=== PATIENT | male | born 1940 | race Caucasian/White ===

== ENCOUNTER 2022-08-04 10:53 | Outpatient (CLI) | payer MEDICARE, BC, SELFPAY ==
[2022-08-04 11:01] VITALS: BP 186/91; PULSE 62; RESP 18; O2SAT 97
--- OUTSIDE RECORDS SUMMARY | 2022-08-04 11:04 | XMS_ITS | Encounter Summary ---
:1940 Author Organization [facility] Address [address] [place] [address] Care Team Providers Name Role Phone Unavailable Primary Care Provider Unavailable Encounter Details Date Type Department Care Team Description 08/05/2021 Hospital Encounter Department of Arturo Munoz [facility] Laboratory Medicine Lv Travis Glucose in [place] [phone] [facility] [phone] [place], [place] (Work) [phone] Social History Tobacco Use Types Packs/Day Years Used Date Smoking Tobacco: Former Pipe Quit : 1989 Smokeless Tobacco: Never Alcohol Use Standard Drinks/Week Comments Yes 0 (1 standard drink = 0.6 oz pure scotch / whiskey once 1-2 times/week alcohol) Alcohol Habits Answer Date Recorded How often do you have a drink containing 4 or more times a w [place] 06/24/2022 alcohol? How many drinks containing alcohol do you have 1 or 2 06/24/2022 on a typical day when you are drinking? How often do you have six or more drinks on one Never 06/24/2022 occasion? Social Isolation Answer Date Recorded In a typical week, how many times do you Twice a week 06/24/2022 talk on the phone with family, friends, or neighbors? How often do you get together with friends Once a week 06/24/2022 or relatives? How often do you attend worship or episcopal More than 4 time s per year 06/24/2022 services? Do you belong to any clubs or organizations Yes 06/24/2022 such as worship groups, unions, fraternal or athletic groups, or school groups? How often do you attend meetings of the Patient refused 06/24/2022 clubs or organizations you belong to? Are you now , , , 06/24/2022 , never or living with a partner? Physical Activity Answer Date Recorded On average, how many days per week do you engage in moderate to 3 days 06/24/2022 strenuous exercise (like walking fast, running, jogging, dancing, swimming, biking, or other activities that cause a light or heavy sweat)? On average, how many minutes do you engage in exercise at th is 50 min 06/24/2022 level? Stress Answer Date Recorded Do you feel stress - tense, restless, nervous, or Only a lit tle 06/24/2022 anxious, or unable to sleep at night because your mind is troubled all the time - these days? Financial Resource Strain Answer Date Recorded How hard is it for you to pay for the very basics like Not h jacqueline at all 06/24/2022 food, housing, medical care, and heating? Intimate Partner Violence Answer Date Recorded Within the last year, have you been afraid of your partner o r No 06/24/2022 ex-partner? Within the last year, have you been humiliated or emotionall y No 06/24/2022 abused in other ways by your partner or ex-partner? Within the last year, have you been kicked, hit, slapped, or No 06/24/2022 otherwise physically hurt by your partner or ex-partner? Within the last year, have you been raped or forced to have any No 06/24/2022 kind of sexual activity by your partner or ex-partner? Food Insecurity Answer Date Recorded Within the past 12 months, you worried that your food would Never true 06/24/2022 run out before you got money to buy more. Within the past 12 months, the food you bought just didn't N ever true 06/24/2022 last and you didn't have money to get more. Transportation Needs Answer Date Recorded In the past 12 months, has lack of transportation kept you f rom No 06/24/2022 medical appointments or from getting medications? In the past 12 months, has lack of transportation kept you f rom No 06/24/2022 meetings, work, or getting things needed for daily living? Housing Stability Answer Date Recorded In the last 12 months, was there a time when you were not ab le No 06/24/2022 to pay the mortgage or rent on time? In the last 12 months, how many places have you lived? 1 06/24/2022 In the last 12 months, was there a time when you did not hav e a No 06/24/[address] to [address] or slept in a prison (including now)? Education Answer Date Recorded What is the highest level of school you have completed or th e Doctorate 07/31/2021 highest degree you have received? 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 atorvastatin (LIPITOR) 20 Take 1 tablet by 0 01/03 mg tablet mouth daily. carvedilol (COREG) 6.25 mg Take 1 tablet by 0 tablet mouth 2 (two) times a day. cholecalciferol (VITAMIN Take 2,000 Units 0 05/15 D3) 2,000 Unit capsule by mouth daily. furosemide (LASIX) 20 mg Take 1 tablet (20 90 tablet 3 09/202008/05/2022 tablet mg total) by mouth daily. glucosamine-chondroitin Take 1 capsule by 0 06/05 (GLUCOSAMINE-CHONDROITIN) mouth 2 (two) 500-400 mg per capsule times a day. losartan (COZAAR) 100 mg Take 100 mg by 0 020 tablet mouth at bedtime. nitroglycerin (NITROSTAT) Place 1 tablet 0 2017 0.4 mg SL tablet under the tongue as needed. documented as of this encounter Plan of Treatment Upcoming Encounters Date Type Specialty Care Team Description 08/17/2022 Appointment Radiology Arturo Munoz M.D. 200 [place], [place] [phone] (Wo rk) 08/19/2022 Appointment Cardiovascular Disease Swathi Munoz M.D. [address] [place], [place] [phone] (Wo rk) 08/19/2022 Appointment Radiology Arturo Munoz M.D. [address] [place], [place] [phone] (Wo rk) 08/25/2022 Office Visit Cardiovascular Disease Swathi Munoz M.D. [address] [place], [place] [phone] (Wo rk) documented as of this encounter Procedures Procedure Name Priority Date/Time Associated Diagnosis Comme nts BASIC METABOLIC Routine 08/05/2021 11:53 AM Impaired Fasting R esults for this PANEL, S/P DIAMOND SANDER Glucose procedure are i n the results section. documented in this encounter Results (ABNORMAL) Basic Metabolic Panel (08/05/2021 11:53 AM DIAMOND SANDER) athologist Signature Potassium, P 5.0 3.6 - 5.2 08/05/2021 CN[facility] mmol/L 1:06 PM DIAMOND SANDER Sodium, P 140 135 - 145 08/05/2021 [facility] mmol/L 1:06 PM DIAMOND SANDER Chloride, P 106 98 - 107 08/05/2021 [facility] mmol/L 1:06 PM DIAMOND SANDER Bicarbonate, P 25 22 - 29 08/05/2021 [facility] mmol/L 1:06 PM DIAMOND SANDER Anion Gap, P 9 7 - 15 08/05/2021 CNFL 1:06 PM DIAMOND SANDER BUN (Blood Urea 25 (H) 8 - 24 08/05/2021 CNFL Nitrogen), P mg/dL 1:06 PM DIAMOND SANDER Creatinine 1.16 0.74 - 08/05/2021 CNFL 1.35 mg/dL 1:06 PM DIAMOND SANDER eGFR-Black/Afri 67 >=60 08/05/2021 CNFL can Norwegian mL/min/BSA 1:06 PM DIAMOND SANDER Comment: ----ADDITIONAL INFORMATION---- Estimated GFR calculated using the 2009 CKD_EPI creatinine equation. eGFR Non-Black/ 58 (L) >=60 mL/min/BSA 08/05/2021 1:06 PM DIAMOND SANDER CN[facility] Norwegian Comment: ----ADDITIONAL INFORMATION---- Estimated GFR calculated using the 2009 CKD_EPI creatinine equation. Calcium, Total, P 9.4 8.8 - 10.2 mg/dL 08/05/2021 1:06 PM DIAMOND SANDER CNFL Glucose, P 105 70 - 140 mg/dL 08/05/2021 1:06 PM DIAMOND SANDER C NFL Specimen Anatomical Collection Method Collection Time Receive d Time (Source) Location / / Volume Laterality Blood (Blood, 08/05/2021 11:53 08/05/2021 Venous) AM DIAMOND SANDER 11:57 AM DIAMOND SANDER Arturo Munoz M.D. LAB BLOOD ADD-ON Performing Organization Address City/State/ZIP Code Phon e Number [address] [address] [facility] [address] System in [address] documented in this encounter Visit Diagnoses Diagnosis Impaired Fasting Glucose documented in this encounter
--- OUTSIDE RECORDS SUMMARY | 2022-08-04 11:04 | XMS_ITS | Encounter Summary ---
:1940 Author Organization [facility] Address [address] [place] [address] Care Team Providers Name Role Phone Unavailable Primary Care Provider Unavailable Reason for Visit Reason Comments Skin Problem Outpatient (Routine) - Closed Specialty Diagnoses / Procedures Referred By Contact Refer red To Contact Dermatology Diagnoses Keratosis Actinic Emelina Medina M.D. [facility] [address] [place], [place] [phone] Referral ID Status Reason Start Date Expiration Date Visits Requ ested Visits Authorized [id number] Closed 04/14/2020 04/14/2021 1 1 Encounter Details Date Type Department Care Team Description 06/24/2020 Office Visit Department of Emelina Medina, Tumor Skin Uncertain Behavior (Primary Dx); Dermatology in [place] Keratosis Actinic [place], [place] [address] [phone] Social History Tobacco Use Types Packs/Day Years Used Date Smoking Tobacco: Former Pipe Quit : 1989 Smokeless Tobacco: Never Alcohol Use Standard Drinks/Week Comments Yes 0 (1 standard drink = 0.6 oz pure scotch / whiskey once 1-2 times/week alcohol) Alcohol Habits Answer Date Recorded How often do you have a drink containing 4 or more times a w mary[place] ig[place] 06/24/2022 alcohol? How many drinks containing alcohol [...] or relatives? How often do you attend adventism or mormon More than 4 time s per year 06/24/2022 services? Do you belong to any clubs or organizations Yes 06/24/2022 such as adventism groups, unions, fraternal or athletic groups, or [...] place to sleep or slept in a [facility]cc (including now)? 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 The patient was last seen by me in Dermatology clinic on 04/07/2020 and a shave biopsy of lesion involving the right upper paraspinal back was done, rule out scc. Pathology report showed hypertrophic ak with follicular extension and positive margins. He returns today with subsequent treatment with C&C. MEDICAL HISTORY No history of skin cancer ?? FAMILY HISTORY No family history for melanoma ?? OBJECTIVE PHYSICAL EXAMINATION General: Awake, alert, in no acute distress, and with appropriate affect. Skin: Limited skin exam done today. Examination of the right upper paraspinal back reveals a shave biopsy site that is well healed with no infection, but there still persists a 8 x 5 mm scaly macule. 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 After explaining the procedure, discussing the associated risks, benefits, and alternatives, and obtaining verbal informed consent, the lesion(s) underwent treatment with curettage and cryotherapy in the standard fashion. Defect size: 9 x 9 mm. Wound care was discussed. Patient offered educational materials. Follow-up immediately if changes occur during monthly self-skin exam. Otherwise follow up in 6-12 months. PATIENT EDUCATION: Ready to learn. No apparent learning barriers were identified. Learning preferences include listening. Explained diagnosis and treatment plan; patient/guardian of patient expressed understanding of thecontent. By signing my name below, I, Jenae Marino, attest that this documentation has been prepared underthe direction and in the presence of Emelina Medina M.D. Electronically Signed: scribe. Davion 06/24/2020. IEmelina M.D., personally performed the services described in this documentation. All medical record entries made by the scribe were at my direction and in my presence. I have reviewed the chart and discharge instructions (if applicable) and agree that the record reflects my personal performance and is accurate and complete. Emelina Medina M.D. 06/24/2020. documented in this encounter Plan of Treatment Upcoming Encounters Date Type Specialty Care Team Description 08/17/2022 Appointment Radiology Arturo Munoz M.D. [address] [place], [place] [phone] (Wo chicho) 08/19/2022 Appointment Cardiovascular Disease Swathi Munoz M.D. [address] [place], [place] [phone] (Wo chicho) 08/19/2022 Appointment Radiology Arturo Munoz M.D. [address] [place], [place] [phone] (Wo rk) 08/25/2022 Office Visit Cardiovascular Disease Swathi Munoz M.D. [address] [place], [place] [phone] (Wo rk) documented as of this encounter Visit Diagnoses Diagnosis Tumor Skin Uncertain Behavior - Primary Keratosis Actinic documented in this encounter Administered Medications Inactive Administered Medications - up to 3 most recent administrations Medication Order MAR Action Action Date Dose Rate Site lidocaine-EPINEPHrine 1 %-1:100,000 Given 06/24/2020 1:45 PM CDT 5 mL Other injection 5 mL (XYLOCAINE W/EPI) 5 mL, infiltration, Once, On Tue06/24/20 at 1345, For 1 dose documented in this encounter
--- OUTSIDE RECORDS SUMMARY | 2022-08-04 11:04 | XMS_ITS | Encounter Summary ---
:1940 Author Organization [facility] Address [address] [place] [address] Care Team Providers Name Role Phone Unavailable Primary Care Provider Unavailable Reason for Referral Outpatient (Routine) - Closed Specialty Diagnoses / Procedures Referred By Contact Refer red To Contact Cardiovascular Disease Arturo Munoz [facility] [place] [facility] M.D. [address] [place] [phone] Referral ID Status Reason Start Date Expiration Date Visits Requ ested Visits Authorized [id number] Closed 07/23/2020 07/23/2021 1 1 EUR/MASSEUSE Reason for Visit Reason Comments Follow-up Outpatient (Routine) - Closed Specialty Diagnoses / Procedures Referred By Contact Refer red To Contact Cardiovascular Disease Arturo Munoz [facility] [place] [facility] M.D. [address] [place] [phone] Referral ID Status Reason Start Date Expiration Date Visits Requ ested Visits Authorized [id number] Closed 05/01/2020 05/01/2021 1 1 Encounter Details Date Type Department Care Team Description 07/23/2020 Office Visit Department of Arturo Munoz Cardiovascular Diseases Lv Travis Glucose (Primary Dx) in [place] [address] [phone] [place], [place] [phone] (Work) [phone] Social History Tobacco Use Types Packs/Day Years Used Date Smoking Tobacco: Former Pipe Quit : 1989 Smokeless Tobacco: Never Alcohol Use Standard Drinks/Week Comments Yes 0 (1 standard drink = 0.6 oz pure scotch / whiskey once 1-2 times/week alcohol) Alcohol Habits Answer Date Recorded How often do you have a drink containing 4 or more times a w [place] 06/24/2022 alcohol? How many drinks containing alcohol [...] or relatives? How often do you attend synagogue or jehovah's witness More than 4 time s per year 06/24/2022 services? Do you belong to any clubs or organizations Yes 06/24/2022 such as synagogue groups, unions, fraternal or athletic groups, or [...] place to sleep or slept in a snf (including now)? 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 - 07/23/2020 9:44 AM CST SUBJECTIVE HISTORY OF PRESENT ILLNESS Evelinetunde is a pleasant 80-year-old gentleman known to me from prior consultation. The reader is referred to my progress note dated May 01, 2020 for details. At that time, he had evidence of mildlyimpaired fasting glucose. I counseled him then on carbohydrate reduction. The plan was to update testing with a hemoglobin A1c today. 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 He was congratulated on this. His hemoglobin A1c shows 6% which is consistent with a diagnosis of prediabetes. OBJECTIVE PHYSICAL EXAMINATION Vital Signs: Blood pressure 136/80, heart rate 60, weight 101 kg. General: This is a healthy-appearing elderly gentleman sitting comfortably in no acute distress. Eyes: Anicteric. Ears, Nose And Throat: Mucous membranes are covered by a cloth mask. Lungs: Symmetric chest expansion. Breathing nonlabored. Extremities: Warm with very mild edema just above the sock line bilateral. I would grade this 1+/4. Skin: No visible ecchymosis, bruising, or breakdown. Psych: Alert, oriented, and responding appropriately. Neuro: Afocal diagnoses. ASSESSMENT / PLAN #1 He had an anterior myocardial infarction (2012), status post stent to mid LAD #2 Impaired fasting glucose #3 Hyperlipidemia with optimal lipid control #4 Obesity It was a pleasure to visit with Dr. 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 Hemoglobin A1c returned at 6%. This is consistent with prediabetes. I have discussed the potential role of metformin. Dr. Lopes would prefer to continue with his diet. I think this is reasonable. His blood pressure appears well controlled. I will make arrangements to see him back in 1 year. We will get a basic metabolic panel at that time. I have asked Dr. Lopes to fast so that this would incorporate a fasting glucose. Twenty-five minutes in consultation. Arturo Munoz M.D. CT CT Job ID: [id number] EUR/MASSEUSE documented in this encounter Plan of Treatment Upcoming Encounters Date Type Specialty Care Team Description 08/17/2022 Appointment Radiology Arturo Munoz M.D. [address] [place], [place] [phone] (Wo rk) 08/19/2022 Appointment Cardiovascular Disease Swathi Munoz M.D. [address] [place] [phone] (Wo rk) 08/19/2022 Appointment Radiology Arturo Munoz M.D. [address] [place] [phone] (Wo rk) 08/25/2022 Office Visit Cardiovascular Disease Swathi Munoz M.D. [address] [place] [phone] (Wo rk) Scheduled Referrals Name Type Priority Associated Order Schedule Diagnoses Cardiovascular Disease Outpatient Referral Routine Expected: office visit (clinic) 2020 (Approximate), Expires: 07/23/2023 documented as of this encounter Procedures Procedure Name Priority Date/Time Associated Diagnosis Comme nts LIPID PANEL, S Routine 07/23/2020 11:01 AM Impaired Fasting Re sults for this MASSEUR/MASSEUSE Glucose procedure are i n the results section . documented in this encounter Results (ABNORMAL) Basic Metabolic Panel (08/05/2021 11:53 AM MASSEUR/MASSEUSE) P athologist Signature Potassium, P 5.0 3.6 - 5.2 08/05/2021 CNFL mmol/L 1:06 PM MASSEUR/MASSEUSE Sodium, P 140 135 - 145 08/05/2021 [facility] mmol/L 1:06 PM MASSEUR/MASSEUSE Chloride, P 106 98 - 107 08/05/2021 CNFL mmol/L 1:06 PM MASSEUR/MASSEUSE Bicarbonate, P 25 22 - 29 08/05/2021 CNFL mmol/L 1:06 PM MASSEUR/MASSEUSE Anion Gap, P 9 7 - 15 08/05/2021 CNFL 1:06 PM MASSEUR/MASSEUSE BUN (Blood Urea 25 (H) 8 - 24 08/05/2021 CNFL Nitrogen), P mg/dL 1:06 PM MASSEUR/MASSEUSE Creatinine 1.16 0.74 - 08/05/2021 CNFL 1.35 mg/dL 1:06 PM MASSEUR/MASSEUSE eGFR-Black/Afri 67 >=60 08/05/2021 CNFL can Sudanese mL/min/BSA 1:06 PM MASSEUR/MASSEUSE Comment: ----ADDITIONAL INFORMATION---- Estimated GFR calculated using the 2009 CKD_EPI creatinine equation. eGFR Non-Black/ 58 (L) >=60 mL/min/BSA 08/05/2021 1:06 PM MASSEUR/MASSEUSE CNFL Sudanese Comment: ----ADDITIONAL INFORMATION---- Estimated GFR calculated using the 2009 CKD_EPI creatinine equation. Calcium, Total, P 9.4 8.8 - 10.2 mg/dL 08/05/2021 1:06 PM MASSEUR/MASSEUSE CNFL Glucose, P 105 70 - 140 mg/dL 08/05/2021 1:06 PM MASSEUR/MASSEUSE C NFL Specimen Anatomical Collection Method Collection Time Receive d Time (Source) Location / / Volume Laterality Blood (Blood, 08/05/2021 11:53 08/05/2021 Venous) AM MASSEUR/MASSEUSE 11:57 AM MASSEUR/MASSEUSE Arturo Munoz M.D. LAB BLOOD ADD-ON Performing Organization Address City/State/[facility] Code Phon e Number [address] LAB CN[facility] [place] [id number] System in [address] Lipid Panel (07/23/2020 11:01 AM MASSEUR/MASSEUSE) P athologist Signature Cholesterol, 129 mg/dL 07/23/2020 CNFL Total 11:42 AM MASSEUR/MASSEUSE Comment: ----REFERENCE VALUE---- Desirable: < 200 Borderline high: 200 - 239 High: > or = 240 Triglycerides 75 mg/dL 07/23/2020 11:42 AM MASSEUR/MASSEUSE CN [place] Comment: ----REFERENCE VALUE---- Normal: <150 Borderline high: 150-199 High: 200-499 Very high: > or =500 Cholesterol, HDL 68 >=40 mg/dL 07/23/2020 11:42 AM CS T CNFL Calculated LDL 46 mg/dL 07/23/2020 11:42 AM MASSEUR/MASSEUSE C NFL Comment: ----REFERENCE VALUE---- Desirable: <100 Above Desirable: 100-129 Borderline high: 130-159 High: 160-189 Very high: > or =190 Cholesterol, Non-HDL, Calculated 61 mg/dL 020 11:42 AM MASSEUR/MASSEUSE CNFL Comment: ----REFERENCE VALUE---- Desirable: <130 Above Desirable: 130-159 Borderline high: 160-189 High: 190-219 Very high: > or =220 Specimen Anatomical Collection Method Collection Time Receive d Time (Source) Location / / Volume Laterality Blood (Blood, 07/23/2020 11:01 07/23/2020 Venous) AM MASSEUR/MASSEUSE 11:07 AM MASSEUR/MASSEUSE Arturo Munoz M.D. LAB BLOOD ADD-ON Performing Organization Address City/State/ZIP Code Phon e Number [facility]- [address] [place] [address] [facility] [address] [address] documented in this encounter Visit Diagnoses Diagnosis Impaired Fasting Glucose - Primary documented in this encounter
--- OUTSIDE RECORDS SUMMARY | 2022-08-04 11:04 | XMS_ITS | Encounter Summary ---
:1940 Author Organization [facility] Address [address] [place] [address] Care Team Providers Name Role Phone Unavailable Primary Care Provider Unavailable Reason for Visit Reason Comments Skin Check Appointment Request (Routine) - Closed Specialty Diagnoses / Procedures Referred By Contact Refer red To Contact Dermatology Referral ID Status Reason Start Date Expiration Date Visits Requ ested Visits Authorized [id number] Closed 03/29/2022 03/29/2023 1 1 Encounter Details Date Type Department Care Team Description 06/28/2022 Office Visit Department of Emelina Medina, Keratosis Actinic (Primary Dx); Dermatology in [place], [place] [address] [facility] Keratosis Seborrheic [address] [place] [id number] Social History Tobacco Use Types Packs/Day Years Used Date Smoking Tobacco: Former Pipe Quit : 1989 Smokeless Tobacco: Never Alcohol Use Standard Drinks/Week Comments Yes 7 (1 standard drink = 0.6 oz pure scotch / whiskey once 1-2 times/week alcohol) Alcohol Habits Answer Date Recorded How often do you have a drink containing 4 or more times a w [place] 06/24/2022 alcohol? How many drinks containing alcohol [...] or relatives? How often do you attend spiritism or anglican More than 4 time s per year 06/24/2022 services? Do you belong to any clubs or organizations Yes 06/24/2022 such as spiritism groups, unions, fraternal or athletic groups, or [...] place to sleep or slept in a usp (including now)? Education Answer Date Recorded What is the highest level of school you have completed or th e Doctorate 07/31/2021 highest degree you have received? 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 - 06/28/2022 11:00 AM CDT SUBJECTIVE CHIEF COMPLAINT / REASON FOR VISIT Full skin cancer screening HISTORY OF PRESENT ILLNESS John Lopes is a pleasant 82 y.o. male who presents for a full skin cancer screening. The patient was last seen by me in Dermatology clinic on 06/22/21. He denies a personal history of skincancer or family history for melanoma. He has a history of an hypertrophic actinic keratosis with follicular extension involving the right upper paraspinal back, status post curettage and cryotherapy on 06/24/[address] Medina at [facility]. He uses sunscreen. He denies any new or changing lesions today. MEDICAL HISTORY 1. Negative for skin cancer 2. Right upper paraspinal back: History of hypertrophic actinic keratosis with follicular extension,status post curettage and cryotherapy on 06/24/[address] Medina at [facility] FAMILY HISTORY Negative for melanoma OBJECTIVE PHYSICAL EXAMINATION General: Awake, alert, in no acute distress, and with appropriate affect. Eyes: No scleral injection or icterus. No eyelid abnormalities. Lymph: No lower extremity edema. Skin: I have examined the scalp, face, neck, chest, abdomen, back, bilateral upper extremities, and bilateral lower extremities. Examination today reveals actinic keratoses, including 2 right ear helix, 2 right upper forehead, 2 left upper forehead, 1 left ear helix, 1 right dorsal hand, 3 right forearm, 1 left dorsal hand, 2 right cheek and 1 left cheek. Examination of the face, trunk and extremities reveals multiple benign-appearing nevi, lentigines and seborrheic keratoses. Examination today reveals no suspicious lesions for skin cancer. ASSESSMENT / PLAN #1 Face, right dorsal hand, right forearm and left dorsal hand: Actinic keratosis x 15 Given the precancerous nature of this lesion(s), treatment is medically indicated. After discussion of the risks, benefits and alternatives to treatment with cryotherapy, informed consent was obtained.We treated a total of 15 lesion(s) with two 10-second freeze-thaw cycles of liquid nitrogen cryotherapy. The patient tolerated the procedure well. Aftercare instructions were provided in written and verbal form to the patient. Should any of these lesions recur, the patient should return for biopsy or further evaluation. Follow up in 1-2 months for recheck if these areas do not complete resolve. #2 Face, trunk and extremities: Multiple nevi and lentigines The ABCDE criteria for melanoma was reviewed with the patient. None of the patient's nevi reach the clinical threshold for biopsy. I recommend continued sun protection, self-skin examinations, and observation. Should any of the patient's nevi change in size, color, texture, or shape or develop symptoms such as itching or bleeding, I recommend an immediate return visit for reassessment. #3 Face, trunk and extremities: Seborrheic keratosis The benign nature of the skin lesion(s) was discussed with the patient. No treatment is required. I recommend continued observation. Should this lesion change in size, color, texture, or shape or develop symptoms such as itching or bleeding, I recommend an immediate return visit for reassessment. #4 Right upper paraspinal back: History of hypertrophic actinic keratosis with follicular extension,status post curettage and cryotherapy on 06/24/[address] Medina at [facility], no recurrence No clinical evidence of local recurrence today. Recommended monthly self-skin examinations to evaluate for new, changing, symptomatic, or otherwise worrisome lesions. Signs and symptoms of skin cancer discussed. Photoprotection was recommended. Return to Dermatology in 12 months for a full skin exam or immediately if any new or changing lesions are noted. PATIENT EDUCATION: Ready to learn. No apparent learning barriers were identified. Learning preferences include listening. Explained diagnosis and treatment plan; patient/guardian of patient expressed understanding of thecontent. By signing my name below, [email or web address], attest that this documentation has been prepared under the direction and in the presence of Emelina Medina M.D. Electronically Signed: mona Perez. 06/22/2022. 12:49 PM CDT. Emelina Brand M.D., personally performed the services described in this documentation. All medical record entries made by the scribe were at my direction and in my presence. I have reviewed the chart and discharge instructions (if applicable) and agree that the record reflects my personal performance and is accurate and complete. Emelina Medina M.D. documented in this encounter Plan of Treatment Upcoming Encounters Date Type Specialty Care Team Description 08/17/2022 Appointment Radiology Arturo Munoz M.D. [address] [place], [place] [phone] (Reggie valentino) 08/19/2022 Appointment Cardiovascular Disease Swathi Munoz M.D. [address] [place] [place] [phone] (Reggie valentino) 08/19/2022 Appointment Radiology Arturo Munoz M.D. [address] [place] [place] [phone] (Reggie valentino) 08/25/2022 Office Visit Cardiovascular Disease Swathi Munoz M.D. [address] [place] [place] [address] [phone] (Wo rk) documented as of this encounter Visit Diagnoses Diagnosis Keratosis Actinic - Primary Nevi Multiple Keratosis Seborrheic documented in this encounter
--- OUTSIDE RECORDS SUMMARY | 2022-08-04 11:04 | XMS_ITS | Encounter Summary ---
:1940 Author Organization [facility] Address [address] [place] [address] Care Team Providers Name Role Phone Unavailable Primary Care Provider Unavailable Reason for Visit Reason Comments Skin Check Appointment Request (Routine) - Closed Specialty Diagnoses / Procedures Referred By Contact Refer red To Contact Dermatology Referral ID Status Reason Start Date Expiration Date Visits Requ ested Visits Authorized [id number] Closed 12/29/2020 12/29/2021 1 1 Encounter Details Date Type Department Care Team Description 06/22/2021 Office Visit Department of Emelina Medina, Keratosis Actinic (Primary Dx); Dermatology in [place] Keratosis Seborrheic Inflamed; [place], [place] [address] [facility] Multiple; [address] [place] [address] [place] [phone] Social History Tobacco Use Types Packs/Day Years Used Date Smoking Tobacco: Former Pipe Quit : 1989 Smokeless Tobacco: Never Alcohol Use Standard Drinks/Week Comments Yes 0 (1 standard drink = 0.6 oz pure scotch / whiskey once 1-2 times/week alcohol) Alcohol Habits Answer Date Recorded How often do you have a drink containing 4 or more times a w [place] 06/24/2022 alcohol? How many drinks containing alcohol [...] or relatives? How often do you attend sabianism or alevism More than 4 time s per year 06/24/2022 services? Do you belong to any clubs or organizations Yes 06/24/2022 such as sabianism groups, unions, fraternal or athletic groups, or [...] place to sleep or slept in a longterm (including now)? 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 - 06/22/2021 10:15 AM CDT SUBJECTIVE CHIEF COMPLAINT / REASON FOR VISIT Full skin cancer screening HISTORY OF PRESENT ILLNESS John Lopes is a pleasant 81 y.o. male who follows up for a full skin cancer screening. The patient was last seen by me in Dermatology clinic on 06/24/20. He denies a personal history of skin cancer or family history for melanoma. He has a history of an hypertrophic actinic keratosis with follicular extension involving the right upper paraspinal back, status post curettage and cryotherapyon 06/24/[address] Medina at [facility]. He uses sunscreen. He denies any new or changing lesions today. MEDICAL HISTORY 1. Negative for skin cancer 2. Right upper paraspinal back: History of hypertrophic actinic keratosis with follicular extension,status post curettage and cryotherapy on 06/24/[address] Medina at [facility] FAMILY HISTORY Negative for melanoma OBJECTIVE PHYSICAL EXAMINATION General: Awake, alert, in no acute distress, and with appropriate affect. Eyes: No scleral injection or icterus. No eyelid abnormalities. Lymph: No lower extremity edema. Skin: I have examined the scalp, face, neck, chest, abdomen, back, bilateral upper extremities, and bilateral lower extremities. Examination today reveals actinic keratoses, including 3 right ear helix, 1 right ear antihelix, 3 right arm, 2 left arm, 1 right hand and 1 mid-nasal bridge. Examination of the face, trunk and extremities reveals multiple benign-appearing nevi, lentigines and seborrheic keratoses. Examination of the left upper paraspinal back reveals a 1 x 0.9 cm red scaly plaque, compatible withan irritated seborrheic keratosis vs lichenoid keratosis. Examination today reveals no suspicious lesions for skin cancer. ASSESSMENT / PLAN #1 Face and arms: Actinic keratosis x 11 Given the precancerous nature of this lesion(s), treatment is medically indicated. After discussion of the risks, benefits and alternatives to treatment with cryotherapy, informed consent was obtained.We treated a total of 11 lesion(s) with two 10-second freeze-thaw cycles of liquid nitrogen cryotherapy. The patient tolerated the procedure well. Aftercare instructions were provided in written and verbal form to the patient. Should any of these lesions recur, the patient should return for biopsy or further evaluation. Follow up in 1-2 months for recheck if these areas do not complete resolve. #2 Left upper paraspinal back: Irritated seborrheic keratosis vs lichenoid keratosis x 1 CONSENT Discussed the risks, benefits, alternatives, and the necessity of other members of the healthcare team participating in the procedure. All questions answered and consent given. PROCEDURE INFORMATION After discussion of the risks, benefits and alternatives to treatment with cryotherapy, informed consent was obtained. We treated a total of 1 lesion(s) with two 42-31-teoume freeze-thaw cycles of liquid nitrogen cryotherapy. The patient tolerated the procedure well. Aftercare instructions were provided in written and verbal form to the patient. Should any of these lesions recur, the patient should return for biopsy or further evaluation. Follow up in 1-2 months for recheck if these areas do not complete resolve. #3 Face, trunk and extremities: Multiple nevi and [...] an immediate return visit for reassessment. #4 Face, trunk and extremities: Seborrheic keratosis The benign nature of the skin lesion(s) was discussed with the patient. No treatment is required. I recommend continued observation. Should this lesion change in size, color, texture, or shape or develop symptoms such as itching or bleeding, I recommend an immediate return visit for reassessment. PATIENT EDUCATION: Ready to learn. No apparent learning barriers were identified. Learning preferences include listening. Explained diagnosis and treatment plan; patient/guardian of patient expressed understanding of thecontent. By signing my name below, I, Andrés Montoya, attest that this documentation has been prepared under thedirection and in the presence of Emelina Medina M.D. Electronically Signed: mona Jack. 06/22/2021. 10:35 AM CDT. I, Emelina Medina M.D., personally performed the services described in [...] 08/17/2022 Appointment Radiology Arturo Munoz M.D. [address] [place], [place] [phone] (Reggie valentino) 08/19/2022 Appointment Cardiovascular Disease Swathi Munoz M.D. 200 [place], [place] [phone] (Reggie valentino) 08/19/2022 Appointment Radiology Arturo Munoz M.D. 200 [place], [place] [phone] (Reggie valentino) 08/25/2022 Office Visit Cardiovascular Disease Swathi Munoz M.D. [address] [place], [place] [phone] (Wo rk) documented as of this encounter Visit Diagnoses Diagnosis Keratosis Actinic - Primary Keratosis Seborrheic Inflamed Nevi Multiple Keratosis Seborrheic documented in this encounter
--- OUTSIDE RECORDS SUMMARY | 2022-08-04 11:04 | XMS_ITS | Encounter Summary ---
:1940 Author Organization [facility] Address [address] [place] [address] Care Team Providers Name Role Phone Unavailable Primary Care Provider Unavailable Encounter Details Date Type Department Care Team Description 04/07/2020 Ancillary Procedure Department of Dermatology Social History Tobacco Use Types Packs/Day Years Used Date Smoking Tobacco: Former Pipe Quit : 1989 Smokeless Tobacco: Never Alcohol Use Standard Drinks/Week Comments Yes 0 (1 standard drink = 0.6 oz pure scotch / whiskey once 1-2 times/week alcohol) Alcohol Habits Answer Date Recorded How often do you have a drink containing 4 or more times a w [place] 06/24/2022 alcohol? How many drinks containing alcohol [...] or relatives? How often do you attend bahai or jew More than 4 time s per year 06/24/2022 services? Do you belong to any clubs or organizations Yes 06/24/2022 such as bahai groups, unions, fraternal or athletic groups, or [...] place to sleep or slept in a half-way (including now)? 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 [address] [place] [phone] (Wo rk) 08/19/2022 Appointment Cardiovascular Disease Swathi Munoz M.D. [address] [place] [address] [phone] (Wo rk) 08/19/2022 Appointment Radiology Arturo Munoz M.D. [address] [place] [address] [phone] (Wo rk) 08/25/2022 Office Visit Cardiovascular Disease Swathi Munoz M.D. [address] [place] [address] [phone] (Wo rk) documented as of this encounter Procedures Procedure Name Priority Date/Time Associated Comments Diagnosis DERMATOLOGY IMAGE Routine 04/07/2020 10:25 Result s for this EXAM AM CDT procedure are i n the results section. documented in this encounter Results Back, right 50 [phone]-Dermatology Image Exam (04/07/2020 10:25 AM CDT) Specimen (Source) Anatomical Collection Method Collection Time Re ceived Time Location / / Volume Laterality 04/07/2020 10:25 AM CDT Narrative [facility] - 04/07/2020 10:28 AM CDT This order has been created and auto-finalized to support the import of images acquired without order. The clini jamie documentation to support these images can be found on the encounter cara t produced images. Provider Not In System IMG NON RAD IMAGING PROCEDUR ES Performing Organization Address City/State/ZIP Code Phon e Number [facility] NA documented in this encounter Visit Diagnoses Not on filedocumented in this encounter
--- OUTSIDE RECORDS SUMMARY | 2022-08-04 11:04 | XMS_ITS | Encounter Summary ---
:1940 Author Organization [facility] Address [address] [place] [address] Care Team Providers Name Role Phone Unavailable Primary Care Provider Unavailable Reason for Referral Outpatient (Routine) - Closed Specialty Diagnoses / Procedures Referred By Contact Refer red To Contact Cardiovascular Disease Arturo Munoz [facility] PATRICK Gatica M.D. [address] [place] [address] Referral ID Status Reason Start Date Expiration Date Visits Requ ested Visits Authorized [id number] Closed 05/01/2020 05/01/2021 1 1 Reason for Visit Reason Comments Coronary Artery Disease Outpatient (Routine) - Closed Specialty Diagnoses / Procedures Referred By Contact Refer red To Contact Cardiovascular Disease TISHA Parrish [facility] En Aviles M.D. [address] [place] [address] Referral ID Status Reason Start Date Expiration Date Visits Requ ested Visits Authorized [id number] Closed 02/19/2019 02/19/2020 1 1 Encounter Details Date Type Department Care Team Description 05/01/2020 Office Visit Department of Arturo Munoz art Chronic Disease (Primary Dx); Cardiovascular Diseases Lv Travis Impaired Fasting Glucose in [place], [address] [place] [address] [address] [address] [place], [place] [phone] (Work) [phone] Social History Tobacco Use Types Packs/Day Years Used Date Smoking Tobacco: Former Pipe Quit : 1989 Smokeless Tobacco: Never Alcohol Use Standard Drinks/Week Comments Yes 0 (1 standard drink = 0.6 oz pure scotch / whiskey once 1-2 times/week alcohol) Alcohol Habits Answer Date Recorded How often do you have a drink containing 4 or more times a w [place] 06/24/2022 alcohol? How many drinks containing alcohol [...] or relatives? How often do you attend orthodox or jewish More than 4 time s per year 06/24/2022 services? Do you belong to any clubs or organizations Yes 06/24/2022 such as orthodox groups, unions, fraternal or athletic groups, or [...] place to sleep or slept in a group home (including now)? 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 - 05/01/2020 1:04 PM CDT SUBJECTIVE CHIEF COMPLAINT/REASON FOR VISIT Ischemic heart disease, prior myocardial infarction. HISTORY OF PRESENT ILLNESS Marianne is a pleasant 80-year-old gentleman from [place], [place]. 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 He experienced an anterior wall myocardial infarctionback in 2012. He received a stent to an occluded mid LAD. He was initially treated with thrombolytics, but required percutaneous coronary intervention. He was treated briefly with anticoagulation for 3months to the anterior wall infarct and akinetic apex. Echocardiograms have shown left ventricular ejection fraction ranging 40-50% over the years. Most recent echocardiogram showed a calculated ejection fraction of 51%. 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 He had no heart failure symptoms. He is followed yearly in Cardiology Clinic without elicitation of angina or heart failure. Dr. Lopes maintains his activities with cycling and some resistance weight training. This has been increasingly difficult given the coronavirus quarantine. He continues to walk the 9 [address] golf course approximately 2 times a week. Lipid profiles have shown excellent lipid control over the years. His last 2 lipid panels show an LDL cholesterol of less than 40 with an HDL cholesterol right at 50. Triglycerides have been 100 or less. Interestingly, fasting glucose has been 108 mg/dL on the past 2 metabolic panels. He has not been formally diagnosed with diabetes. OBJECTIVE VITAL SIGNS Height 176 cm, weight 105 kg, heart rate 60 and regular, blood pressure 138/80. PHYSICAL EXAMINATION General: Healthy-appearing elderly gentleman sitting comfortably in no acute distress. Eyes: Anicteric. Ears, Nose and Throat: Mucous membranes are covered by a homemade mask. Lungs: Symmetric chest expansion, breathing nonlabored. Extremities: Warm with 1+ pitting edema at the lower shins, just above the sock line. Skin: Very mild scattered ecchymoses on the extensor surface of the upper extremities. Psych: Alert, oriented, responding appropriately. Neuro: Afocal. 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 He continues to do well from a symptomstandpoint. He has no signs or symptoms that would suggest angina or heart failure. We spent the overwhelming majority of clinic in counseling. We discussed his excellent lipid profiles. We also discussed prior laboratory testing showing mildly impaired fasting glucose of 108 mg/dL. I think Dr. Lopeswould benefit from carbohydrate reduction. He has abdominal obesity and suggestion of prediabetes. We will update his testing with a hemoglobin A1c today. I spent upwards of 25 minutes counseling diet. We discussed low glycemic food choices. I will make arrangements to see Dr. Lopes back in 3 months. We will review his response to carbohydrate reduction and consider repeating fasting glucose at that time. I will call him with the results of the hemoglobin A1c. BILLING: There were 25 minutes in consultation. Arturo Munoz M.D. CT CT Job ID: [id number] documented in this encounter Plan of Treatment Upcoming Encounters Date Type Specialty Care Team Description 08/17/2022 Appointment Radiology Arturo Munoz M.D. [address] [place], [place] [phone] (Reggie valentino) 08/19/2022 Appointment Cardiovascular Disease Swathi Munoz M.D. [address] [place] [phone] (Reggie valentino) 08/19/2022 Appointment Radiology Arturo Munoz M.D. [address] [place] [phone] (Reggie valentino) 08/25/2022 Office Visit Cardiovascular Disease Swathi Munoz M.D. [address] [place] [phone] (Reggie valentino) Scheduled Referrals Name Type Priority Associated Order Schedule Diagnoses Cardiovascular Disease Outpatient Referral Routine Expected: office visit (clinic) 2019 (Approximate), Expires: 05/01/2023 documented as of this encounter Procedures Procedure Name Priority Date/Time Associated Diagnosis Comme nts HEMOGLOBIN A1C, B Routine 05/01/2020 2:08 PM Ischemic Heart Re sults for this CDT Chronic Disease procedure ar e in the results section. documented in this encounter Results (ABNORMAL) Hemoglobin A1c (05/01/2020 2:08 PM CDT) P athologist Signature Hemoglobin A1c, 6.0 (H) 4.2 - 5.6 05/01/2020 CNFL B % 2:30 PM CDT Comment: Hemoglobin A1c values of 5.7-6.4 percent indicate an increased risk for developing diabetes lynne guan. In diabetic patients, HbA1c goals should be discussed with healthcare provider. Specimen Anatomical Collection Method Collection Time Receive d Time (Source) Location / / Volume Laterality Blood (Blood, 05/01/2020 2:08 PM 05/01/20 20 2:13 Venous) CDT PM CDT Arturo Munoz M.D. LAB BLOOD ADD-ON Performing Organization Address City/State/ZIP Code Phon e Number [facility]- [address] [place] [address] [place] [address] [place] [address] [address] documented in this encounter Visit Diagnoses Diagnosis Ischemic Heart Chronic Disease - Primary Impaired Fasting Glucose documented in this encounter
--- OUTSIDE RECORDS SUMMARY | 2022-08-04 11:04 | XMS_ITS | Encounter Summary ---
:1940 Author Organization [facility] Address [address] [place] [address] Care Team Providers Name Role Phone Unavailable Primary Care Provider Unavailable Reason for Referral Outpatient (Routine) - Authorized Specialty Diagnoses / Procedures Referred By Contact Refer red To Contact Diagnoses Edema Lower Extremity Arturo Munoz M.D. [facility] [place] [facility] Procedures US Lower Extremity Veins Right [address] [place] [address] Referral ID Status Reason Start Date Expiration Date Visits V isits Requested Authorized [id number] Authorized 08/05/2021 08/05/2022 1 1 ING AND REGULATING TECHNICIAN Outpatient (Routine) - Authorized Specialty Diagnoses / Procedures Referred By Contact Refer red To Contact Orthopedic Surgery Diagnoses Pain Knee Right Edema Lower Extremity Arturo Munoz [facility] [place] [facility] M.D. [address] [place] [address] Referral ID Status Reason Start Date Expiration Date Visits V isits Requested Authorized [id number] Authorized 08/05/2021 08/05/2022 1 1 Scheduling Instructions Ortho internal referral panel order, gt ging before Consult visit ING AND REGULATING TECHNICIAN Outpatient (Routine) - Authorized Specialty Diagnoses / Procedures Referred By Contact Refer red To Contact Cardiovascular Disease Arturo Munoz [facility] [place] [facility] M.D. [address] [place] [address] Referral ID Status Reason Start Date Expiration Date Visits V isits Requested Authorized [id number] Authorized 08/05/2021 08/05/2022 1 1 ING AND REGULATING TECHNICIAN Outpatient (Routine) - Authorized Specialty Diagnoses / Procedures Referred By Contact Refer red To Contact Diagnoses Cardiomyopathy Ischemic Arturo Munoz M.D. [facility] [place] [facility] Procedures Echo Transthoracic (TTE) [address] [place] [phone] Referral ID Status Reason Start Date Expiration Date Visits V isits Requested Authorized [id number] Authorized 08/05/2021 09/03/2022 1 1 ING AND REGULATING TECHNICIAN Reason for Visit Reason Comments Follow-up Outpatient (Routine) - Closed Specialty Diagnoses / Procedures Referred By Contact Refer red To Contact Cardiovascular Disease Arturo Munoz [facility] PATRICK Gatica M.D. [address] [place] [address] Referral ID Status Reason Start Date Expiration Date Visits Requ ested Visits Authorized [id number] Closed 07/23/2020 07/23/2021 1 1 Encounter Details Date Type Department Care Team Description 08/05/2021 Office Visit Department of Artuor Munoz Cardiomyopa thy Ischemic (Primary Dx); Cardiovascular Diseases Lv Travis Pain Knee Right; in [address] Edema Lower Extremity [place] [address] [address] [address] [place], [place] [phone] (Work) [phone] Social History Tobacco Use Types Packs/Day Years Used Date Smoking Tobacco: Former Pipe Quit : 1989 Smokeless Tobacco: Never Alcohol Use Standard Drinks/Week Comments Yes 0 (1 standard drink = 0.6 oz pure scotch / whiskey once 1-2 times/week alcohol) Alcohol Habits Answer Date Recorded How often do you have a drink containing 4 or more times a w [place] 06/24/2022 alcohol? How many drinks containing alcohol [...] or relatives? How often do you attend mu-ism or bahai More than 4 time s per year 06/24/2022 services? Do you belong to any clubs or organizations Yes 06/24/2022 such as mu-ism groups, unions, fraternal or athletic groups, or [...] place to sleep or slept in a custodial (including now)? Education Answer Date Recorded What is the highest level of school you have completed or th e Doctorate 07/31/2021 highest degree you have received? 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 encounter Last Filed Vital Signs Vital Sign Reading Time Taken Comments Blood Pressure 170/79 08/05/2021 1:09 PM TESTING AND REGULATING TECHNICIAN Pulse 55 08/05/2021 1:09 PM TESTING AND REGULATING TECHNICIAN Temperature 36.9 ??C (98.4 ??F) 08/05/2021 12:59 PM TESTING AND REGULATING TECHNICIAN Respiratory Rate 18 08/05/2021 12:59 PM TESTING AND REGULATING TECHNICIAN Oxygen Saturation 96% 08/05/2021 12:59 PM TESTING AND REGULATING TECHNICIAN Inhaled Oxygen Concentration - - Weight 104 kg (228 lb 9.9 oz) 08/05/2021 12:59 PM TESTING AND REGULATING TECHNICIAN Height 176 cm (5' 9.29) 08/05/2021 12:59 PM TESTING AND REGULATING TECHNICIAN Body Mass Index 33.48 08/05/2021 12:59 PM TESTING AND REGULATING TECHNICIAN documented in this encounter Progress Notes Arturo Munoz M.D. - 08/05/2021 12:41 PM CST SUBJECTIVE CHIEF COMPLAINT/REASON FOR VISIT Ischemic heart disease. HISTORY OF PRESENT ILLNESS Dr. Mosqueraelizabethheather is a pleasant 81-year-old gentleman known to me from multiple prior visits. 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 He experienced an anterior wall myocardial infarction back in 2012. He received a stent to an occluded mid LAD. He was initially treated withthrombolytics, but required percutaneous coronary intervention. He was treated briefly with anticoagulation for 3 months due to an anterior wall infarct and akinetic apex. Echocardiograms have shown left ventricular ejection fraction ranging 40-50% over the years with the most recent echo showing ejection fraction calculated at 51%. Dr. Lopes is active. He exercises 3 times a week utilizing a stationary bike for 5-6 miles, calisthenics including sit-ups, as well as strength training using weights. He also golfs 1-2 times weekly and often walks the golf course. More recently, he has had increasing knee pain on the right. He has had steroid injections in the past with variable efficacy. He feels that his knee arthritis is his main functional limitation. He does not have chest pain with activity and likewise denies dyspnea on exertion. He has some chronic lower extremity swelling, right greater than left. He uses Lasix intermittently. He denies orthopnea or PND. He has had no fainting spell. He has had no bleeding and no strokeor TIA symptoms. OBJECTIVE PHYSICAL EXAMINATION Vital Signs: Height 176 cm, weight 103.7 kg, heart rate 55 regular, blood pressure 170/79. General: This is an elderly gentleman sitting comfortably in no acute distress. Eyes: Anicteric. Ears, Nose and Throat: The mucous membranes are covered by surgical mask. Lungs: Clear to auscultation. Heart: Central venous pressure normal. Cardiac auscultation normal. Extremities: There is 2+ pitting edema on the right and 1+ on the left. This is most prominent abovethe sock line. Skin: No visible ecchymosis, bruising or breakdown. Psych: Alert, oriented, responding appropriately. Neuro: Afocal. 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 Since I saw him last, he has enjoyed clinical stability. His functional limitation is primarily due to right knee arthritis. He does not have signs or symptoms that would suggest angina or heart failure exacerbation. He does have chronic lower extremity swelling with asymmetry on the right. The asymmetric swelling seems to be a new to observation and I am going to get a right lower extremity ultrasound to exclude thrombus or other anatomic abnormality. I will notify Dr. Lopes of the results when available. I am also going to update his echocardiogram as it has been several years since his last echo. I am also going to update his lipid profile. I will make arrangements to see Dr. Lopes back in 1 year but he is welcome back sooner should new signs or symptoms warrant. Arturo Munoz M.D. CT CT Job ID: [id number]/[facility] ING AND REGULATING TECHNICIAN documented in this encounter Plan of Treatment Upcoming Encounters Date Type Specialty Care Team Description 08/17/2022 Appointment Radiology Arturo Munoz M.D. [address] [place] [phone] (Reggie valentino) 08/19/2022 Appointment Cardiovascular Disease Swathi Munoz M.D. [address] [place] [phone] (Reggie valentino) 08/19/2022 Appointment Radiology Arturo Munoz M.D. [address] [place] [phone] (Reggie valentino) 08/25/2022 Office Visit Cardiovascular Disease Swathi Munoz M.D. [address] [place] [phone] (Reggie valentino) Scheduled Orders Name Type Priority Associated Diagnoses Order Schedule Echo Transthoracic Echocardiography Routine Cardiomyopathy Exp ected: (TTE) Ischemic 08/05/2021 (Approximate) , Expires: 11/03/2022 Lipid Panel Lab Add-On Cardiomyopathy Expected: Ischemic 08/05/2021 (Approximate) , Expires: 11/03/2022 US Lower Extremity Imaging RAD - Routine Edema Lower Expected : Veins Right (most inpatients Extremity 08/05/2021 and all (Approximate) outpatients) , Expires: 11/03/2022 Scheduled Referrals Name Type Priority Associated Order Schedule Diagnoses Cardiovascular Disease Outpatient Referral Routine Expected: office visit (clinic) 2020, Expires: 11/03/2022 Orthopedic Surgery - Outpatient Referral Routine Pain Kn ee Right Expected: Knee non surgical Edema Lower 08/05/2021 consult (clinic) Extremity (Approximat e), Expires: 11/03/2022 documented as of this encounter Visit Diagnoses Diagnosis Cardiomyopathy Ischemic - Primary Pain Knee Right Edema Lower Extremity documented in this encounter
--- OUTSIDE RECORDS SUMMARY | 2022-08-04 11:04 | XMS_ITS | Encounter Summary ---
:1940 Author Organization [facility] Address [address] [place] [address] Care Team Providers Name Role Phone Unavailable Primary Care Provider Unavailable Encounter Details Date Type Department Care Team Description 08/05/2021 Hospital Encounter Department of Arturo Munoz Pain Knee Right; Radiology in [place] Travis M.D. Edema Lower Extremity [place], [place] [address] [address] [place], [place] [phone] (Work) [phone] Social History Tobacco Use Types Packs/Day Years Used Date Smoking Tobacco: Former Pipe Quit : 1989 Smokeless Tobacco: Never Alcohol Use Standard Drinks/Week Comments Yes 0 (1 standard drink = 0.6 oz pure scotch / whiskey once 1-2 times/week alcohol) Alcohol Habits Answer Date Recorded How often do you have a drink containing 4 or more times a w [place] 06/24/2022 alcohol? How many drinks containing alcohol [...] or relatives? How often do you attend taoism or christianity More than 4 time s per year 06/24/2022 services? Do you belong to any clubs or organizations Yes 06/24/2022 such as taoism groups, unions, fraternal or athletic groups, or [...] place to sleep or slept in a fci (including now)? Education Answer Date Recorded What is the highest level of school you have completed or th e Doctorate 07/31/2021 highest degree you have received? 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 200 [place], [place] [phone] (Wo rk) 08/19/2022 Appointment Cardiovascular Disease Swathi Munoz M.D. [address] [place], [place] [phone] (Wo rk) 08/19/2022 Appointment Radiology Arturo Munoz M.D. [address] [place], [place] [phone] (Wo rk) 08/25/2022 Office Visit Cardiovascular Disease Swathi Munoz M.D. [address] [place], [place] [phone] (Wo rk) Scheduled Orders Name Type Priority Associated Diagnoses Order S chedule DX Knee Right 3 Imaging RAD - Routine (most Pain Knee Ri ght Once for 1 Views inpatients and all Edema Lower Occurrenc es starting outpatients) Extremity 08/05/2021 unti l 08/05/2021 documented as of this encounter Visit Diagnoses Diagnosis Pain Knee Right Edema Lower Extremity documented in this encounter
--- OUTSIDE RECORDS SUMMARY | 2022-08-04 11:04 | XMS_ITS | Clinical Summary ---
:1940 Author Organization [facility] Address [address] [place] [address] Care Team Providers Name Role Phone Unavailable Primary Care Provider Unavailable Source Comments Patient records contain information from all sites at [facility]. For routine questions regarding patient records, call [phone] during business hours, M-F 8:00 AM - 5:00 PM Central Time. Record requests for emergency care only can be directed to [phone] at any time.[facility] Allergies No known active allergies Medications Medication Sig Dispensed Refills Start Date End Date Status atorvastatin (LIPITOR) Take 1 tablet 0 01/20/2017 Active 20 mg tablet by mouth daily. aspirin [address] tablet Take 81 mg by 0 02/11/2014 Active mouth daily. carvedilol (COREG) 6.25 Take 1 tablet 0 01/20/2017 Active mg tablet by mouth 2 (two) times a day. cholecalciferol Take 2,000 0 05/15/2014 Ac tive (VITAMIN D3) 2,000 Unit Units by mouth capsule daily. glucosamine-chondroitin Take 1 capsule 0 06/05/2013 Active (GLUCOSAMINE-CHONDROITI by mouth 2 N) 500-400 mg per (two) times a capsule day. nitroglycerin Place 1 tablet 0 02/01/2018 Active (NITROSTAT) 0.4 mg SL under the tablet tongue as needed. losartan (COZAAR) 100 Take 100 mg by 0 02/14/2020 Active mg tablet mouth at bedtime. furosemide (LASIX) 20 Take 1 tablet 90 tablet 3 08/05/202109/2021 Active mg tablet (20 mg total) by mouth daily. Active Problems Problem Noted Date Impaired Fasting Glucose 05/01/2020 Arteriosclerotic Cardiovascular Disease 01/24/2017 Overview: Atherosclerotic heart disease of [place] coronary artery without angina pectoris Coronary Artery Disease (Unspecified) 01/20/2017 Overview: Coronary Artery Disease (CAD) NOS Cardiomyopathy Ischemic 05/22/2016 Hypertension Chronic 05/22/2016 Ischemic Heart Chronic Disease 05/22/2016 Encounters Date Type Specialty Care Team Description 06/28/2022 Office Visit Dermatology Emelina Medina M.D. Kerato sis Actinic (Primary Dx); Nevi Multiple; Keratosis Sebor rheic from Last 3 Months Immunizations Name Administration Dates Next Due H1N1 All Forms 07/25/2009 H1N1 Inj 07/25/2009 HZV (ZOSTAVAX) 08/16/2008 Influenza (IM) Preservative Free 06/13/2007 Influenza TIV (IM) 06/05/2013 Influenza high dose QV(65 years or 05/22/2020 older) (PF) Influenza, Seasonal, Injectable 06/05/2013, 07/11/2012, 03/2011, 06/21/2008 Influenza, Unspecified 07/11/2012, 06/11/2011, 06/25/2010, 06/19/2009, 06/21/2008, 06/13/2007 PCV13 04/29/2015 PPSV23 07/08/2016 RZV (SHINGRIX) 05/20/2019, 01/11/2019, 12/27/2018 Td Preservative Free (TENIVAC, 06/26/2009 DECAVAC) Tdap 04/29/2015 influenza high dose (65 years or 05/20/2019, 06/14/2018, 10/2015, older) (PF) 06/02/2015 influenza vaccine quad 05/22/2020, 06/04/2019, 06/29/2017, (FLUZONE/FLUARIX) (6 months and 05/13/2014 older)(PF) Family History Medical History Relation Name Comments Hypertension Father Father Arthritis Mother mother Relation Name Status Comments Father Father Mother mother Social History Tobacco Use Types Packs/Day Years Used Date Smoking Tobacco: Former Pipe Quit : 1989 Smokeless Tobacco: Never Alcohol Use Standard Drinks/Week Comments Yes 7 (1 standard drink = 0.6 oz pure scotch / whiskey once 1-2 times/week alcohol) Alcohol Habits Answer Date Recorded How often do you have a drink containing 4 or more times a w [place] 06/24/2022 alcohol? How many drinks containing alcohol [...] or relatives? How often do you attend restorationism or bahai More than 4 time s per year 06/24/2022 services? Do you belong to any clubs or organizations Yes 06/24/2022 such as restorationism groups, unions, fraternal or athletic groups, or [...] place to sleep or slept in a fpc (including now)? Education Answer Date Recorded What is the highest level of school you have completed or th e Doctorate 07/31/2021 highest degree you have received? 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 Vital Signs Vital Sign Reading Time Taken Comments Blood Pressure 170/79 08/05/2021 1:09 PM CLOTH DYER Pulse 55 08/05/2021 1:09 PM CLOTH DYER Temperature 36.9 ??C (98.4 ??F) 08/05/2021 12:59 PM CLOTH DYER Respiratory Rate 18 08/05/2021 12:59 PM CLOTH DYER Oxygen Saturation 96% 08/05/2021 12:59 PM CLOTH DYER Inhaled Oxygen Concentration - - Weight 104 kg (228 lb 9.9 oz) 08/05/2021 12:59 PM CLOTH DYER Height 176 cm (5' 9.29) 08/05/2021 12:59 PM CLOTH DYER Body Mass Index 33.48 08/05/2021 12:59 PM CLOTH DYER Plan of Treatment Upcoming Encounters Date Type Specialty Care Team Description 08/17/2022 Appointment Radiology Arturo Munoz M.D. [address] [place] [address] [phone] (Wo rk) 08/19/2022 Appointment Cardiovascular Disease Swathi Munoz M.D. [address] [place] [address] [phone] (Wo rk) 08/19/2022 Appointment Radiology Arturo Munoz M.D. [address] [place] [address] [phone] (Wo rk) 08/25/2022 Office Visit Cardiovascular Disease Swathi Munoz M.D. [address] [place] [address] [phone] (Wo rk) Health Maintenance Due Date Last Done Comments Depression Screening (Annual 09/05/2021 PHQ-2) Fall Risk Screen (Annual) 09/05/2021 Office Visit for Blood Pressure 11/03/2021 08/05/2021 Check / Re-check Influenza Vaccine (#1) 2022 05/22/2020, 05/22/2020, 06/04/2019, Additional history exists Creatinine Level 08/05/2022 08/05/2021, 02/06/2019, 02/06/2018 Fasting Glucose for Diabetes 08/05/2022 08/05/2021, 020, Screening 02/06/2019, Additional history exists Potassium Level 08/05/2022 08/05/2021, 02/06/2019, 02/06/2018 Sodium Level 08/05/2022 08/05/2021, 02/06/2019, 02/06/2018 DTaP,Tdap,and Td Vaccines (2 - Td 04/29/2025 04/29/2015, or Tdap) Pneumococcal vaccine (65+ years) Completed 07/08/2016, Zoster Vaccines Completed 05/20/2019, 01/11/2019, 12/27/2018, Additional history exists COVID-19 Vaccine Completed 06/01/2022, 01/12/2022, 06/01/2021, Additional history exists Medical Devices Implanted Type Area Scrap Crusher Device Shelf Model / Identifier Expiration Date Ser ial / Lot Cardiac Stent Cardiac Heart Implanted: Qty: 1 Stent Description: Cardiac stent pt stated abo ut 5 years ago and he said it was in the Maker vessel of the heart. Insurance Payer Benefit Plan Subscriber ID Effective Phone Address Typ e / Group Dates MEDICARE MEDICARE A [id number] 2004-Pres [address] [place] [id number] BLUE CROSS BCBS [place] [id number] 2016-Pres [phone] PO SONAL X Cost Share BLUE SHIELD BLUE COST ent [phone] [place] [address]
--- OUTSIDE RECORDS SUMMARY | 2022-08-04 11:04 | XMS_ITS | Encounter Summary ---
:1940 Author Organization [facility] Address [address] [place] [address] Care Team Providers Name Role Phone Unavailable Primary Care Provider Unavailable Encounter Details Date Type Department Care Team Description 10/07/2020 Orders Only [facility] Sa mode Braswell M.D. [address] [place], [place] [phone] (Wo rk) Social History Tobacco Use Types Packs/Day Years Used Date Smoking Tobacco: Former Pipe Quit : 1989 Smokeless Tobacco: Never Alcohol Use Standard Drinks/Week Comments Yes 0 (1 standard drink = 0.6 oz pure scotch / whiskey once 1-2 times/week alcohol) Alcohol Habits Answer Date Recorded How often do you have a drink containing 4 or more times a w [place] 06/24/2022 alcohol? How many drinks containing alcohol [...] How often do you attend mu-ism or presybeterian More than 4 time s per year [...] place to sleep or slept in a senior care (including now)? 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 [address] [place] [address] [phone] (Wo rk) 08/19/2022 Appointment Cardiovascular Disease Swathi Munoz M.D. [address] [place] [address] [phone] (Wo rk) 08/19/2022 Appointment Radiology Arturo Muonz M.D. [address] [place] [address] [phone] (Wo rk) 08/25/2022 Office Visit Cardiovascular Disease Swathi Munoz M.D. [address] [place] [address] [phone] (Wo rk) documented as of this encounter Visit Diagnoses Not on filedocumented in this encounter
--- OUTSIDE RECORDS SUMMARY | 2022-08-04 11:04 | XMS_ITS | Encounter Summary ---
:1940 Author Organization [facility] Address [address] [place] [address] Care Team Providers Name Role Phone Unavailable Primary Care Provider Unavailable Reason for Referral Outpatient (Routine) - Closed Specialty Diagnoses / Procedures Referred By Contact Refer red To Contact Dermatology Diagnoses Keratosis Actinic Emelina Medina M.D. 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 Curettage and cryotherapy at [facility] within the next 3-6 weeks. Please schedule at [facility] with Dr. Medina. Encounter Details Date Type Department Care Team Description 04/14/2020 Orders Only Department of Emelina Medina, Keratosis Actinic Dermatology in [place] (Primary Dx) [place], [place] [address] [facility] [address] [place] [phone] Social History Tobacco Use Types Packs/Day Years Used Date Smoking Tobacco: Former Pipe Quit : 1989 Smokeless Tobacco: Never Alcohol Use Standard Drinks/Week Comments Yes 0 (1 standard drink = 0.6 oz pure scotch / whiskey once 1-2 times/week alcohol) Alcohol Habits Answer Date Recorded How often do you have a drink containing 4 or more times a w [place] 06/24/2022 alcohol? How many drinks containing alcohol [...] or relatives? How often do you attend jain or episcopal More than 4 time s per year 06/24/2022 services? Do you belong to any clubs or organizations Yes 06/24/2022 such as jain groups, unions, fraternal or athletic groups, or [...] place to sleep or slept in a long-term (including now)? 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 200 [place], [place] [phone] (Reggie valentino) 08/19/2022 Appointment Cardiovascular Disease Swathi Munoz M.D. 200 [place], [place] [phone] (Reggie valentino) 08/19/2022 Appointment Radiology Arturo Munoz M.D. 200 [place], [place] [phone] (Reggie valentino) 08/25/2022 Office Visit Cardiovascular Disease Swathi Munoz M.D. [address] [place], [place] [phone] (Wo rk) Scheduled Referrals Name Type Priority Associated Order Schedule Diagnoses Dermatology office Outpatient Referral Routine Keratosis Actin ic Expected: visit (clinic) 05/15/2020 (Approximate), Expires: 04/14/2023 documented as of this encounter Visit Diagnoses Diagnosis Keratosis Actinic - Primary documented in this encounter
--- OUTSIDE RECORDS SUMMARY | 2022-08-04 11:04 | XMS_ITS | Encounter Summary ---
:1940 Author Organization [facility] Address [address] [place] [address] Care Team Providers Name Role Phone Unavailable Primary Care Provider Unavailable Encounter Details Date Type Department Care Team Description 04/29/2020 Hospital Encounter Department of Aviva Parrish omyopathy Ischemic; Radiology in [place] Obesity Body Mass Index 30-39.9 Adult; [place], [place] [address] [facility] Hyperlipidemia [id number] [place] [address] [phone] (Work) [phone] Social History Tobacco Use Types Packs/Day Years Used Date Smoking Tobacco: Former Pipe Quit : 1989 Smokeless Tobacco: Never Alcohol Use Standard Drinks/Week Comments Yes 0 (1 standard drink = 0.6 oz pure scotch / whiskey once 1-2 times/week alcohol) Alcohol Habits Answer Date Recorded How often do you have a drink containing 4 or more times a w [place] 06/24/2022 alcohol? How many drinks containing alcohol [...] or relatives? How often do you attend latter-day or baptist More than 4 time s per year 06/24/2022 services? Do you belong to any clubs or organizations Yes 06/24/2022 such as latter-day groups, unions, fraternal or athletic groups, or [...] place to sleep or slept in a detention (including now)? 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 atorvastatin (LIPITOR) 20 Take 1 tablet by 0 01/03 mg tablet mouth daily. carvedilol (COREG) 6.25 Take 1 tablet by 0 2016 mg tablet mouth 2 (two) times a day. cholecalciferol (VITAMIN Take 2,000 Units by 0 D3) 2,000 Unit capsule mouth daily. glucosamine-chondroitin Take 1 capsule by 0 06/05 (GLUCOSAMINE-CHONDROITIN) mouth 2 (two) times 500-400 mg per capsule a day. losartan (COZAAR) 100 mg Take 100 mg by mouth 0 0 02/14/2020 tablet at bedtime. nitroglycerin (NITROSTAT) Place 1 tablet under 0 02/01/2018 0.4 mg SL tablet the tongue as needed. losartan (COZAAR) 50 mg Take 1 tablet by 0 201606/22/2021 tablet mouth daily. metroNIDAZOLE Apply 1 application 0 (METROCREAM) 0.75 % cream topically 2 (two) times a day. multivit with Take 1 tablet by 0 01/24/201706/22 minerals/lutein mouth daily. (MULTIVITAMIN 50 PLUS ORAL) sulfacetamide sodium, Apply sparingly to 1 Bottle 1 201706/22/2021 acne, (KLARON) 10 % involved areas on lotion (suspension) face once daily as needed. documented as of this encounter Plan of Treatment Upcoming Encounters Date Type Specialty Care Team Description 08/17/2022 Appointment Radiology Arturo Munoz M.D. [address] [place], [place] [phone] (Wo rk) 08/19/2022 Appointment Cardiovascular Disease Swathi Munoz M.D. [address] [place], [place] [phone] (Wo rk) 08/19/2022 Appointment Radiology Arturo Munoz M.D. [address] [place], [place] [phone] (Wo rk) 08/25/2022 Office Visit Cardiovascular Disease Swathi Munoz M.D. [address] [place], [place] [phone] (Wo rk) documented as of this encounter Procedures Procedure Name Priority Date/Time Associated Diagnosis Comme nts ECG Routine 04/29/2020 9:48 AM Cardiomyopath y Ischemic Results for this CDT Obesity Body Mass Index proc edure are in 30-39.9 Adult the results Hyperlipidemia section. documented in this encounter Results ECG 12 Lead (04/29/2020 9:48 AM CDT) P athologist Signature Ventricular Rate 54 BPM MUSE ECG/Min MD Interval 174 ms MUSE QRSD Interval 92 ms MUSE QT Interval 428 ms MUSE QTC Interval 405 ms MUSE P [place] 66 degrees MUSE R [place] 2 degrees MUSE T Wave [place] 45 degrees MUSE Specimen Anatomical Collection Method Collection Time Receive d Time (Source) Location / / Volume Laterality 04/29/2020 9:48 AM 0 9:52 CDT AM CDT Impressions MUSE - 04/29/2020 9:52 AM CDT Sinus bradycardia Cannot rule out Anteroseptal infarct Nonspecific ST and T wave abnormality When compared with ECG of 06-FEB-2019 08 :49, No significant change was found Reviewed by SANTA Cazares Narrative This result has an attachment that is no t available. Procedure Note Geo Torres Jr., M.D. - 04/29/2020For matting of this note might be different from the original. IMPRESSION: Sinus bradycardia Cannot rule out Anteroseptal infarct Nonspecific ST and T wave abnormality When compared with ECG of 06-FEB-2019 08 :49, No significant change was found Reviewed by SANTA Cazares Des Garcia M.D. ECG ORDERABLES Performing Organization Address City/State/ZIP Code Phon e Number MUSE MUSE NA documented in this encounter Visit Diagnoses Diagnosis Cardiomyopathy Ischemic Obesity Body Mass Index 30-39.9 Adult Hyperlipidemia documented in this encounter
--- OUTSIDE RECORDS SUMMARY | 2022-08-04 11:05 | XMS_ITS | Encounter Summary ---
:1940 Author Organization [facility] Address [address] [place] [address] Care Team Providers Name Role Phone Unavailable Primary Care Provider Unavailable Encounter Details Date Type Department Care Team Description 02/06/2019 Hospital Encounter Department of Hardik Garcia, [place] lipidemia; Laboratory Medicine [place] Cardiomyopathy Ischemic; in [address] Hypertension Essential Primary; [place], [place] Obesity Body Mass Index 30-3 9.[address] [place] [address] [facility] [phone] [place], [place] (Work) [phone] Social History Tobacco Use Types Packs/Day Years Used Date Smoking Tobacco: Former Pipe Quit : 1989 Smokeless Tobacco: Never Alcohol Use Standard Drinks/Week Comments Yes 0 (1 standard drink = 0.6 oz pure scotch / whiskey once 1-2 times/week alcohol) Alcohol Habits Answer Date Recorded How often do you have a drink containing 4 or more times a w [place] 06/24/2022 alcohol? How many drinks containing alcohol [...] or relatives? How often do you attend latter day or sabianist More than 4 time s per year 06/24/2022 services? Do you belong to any clubs or organizations Yes 06/24/2022 such as latter day groups, unions, fraternal or athletic groups, or [...] place to sleep or slept in a ch[facility] (including now)? 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 nitroglycerin (NITROSTAT) Place 1 tablet under 0 [...] Appointment Radiology Arturo Munoz M.D. [address] [place], [place] [phone] (Wo rk) 08/19/2022 Appointment Cardiovascular Disease Swathi Munoz M.D. [address] [place] [address] [phone] (Wo rk) 08/19/2022 Appointment Radiology Arturo Munoz M.D. [address] [place] [address] [phone] (Wo rk) 08/25/2022 Office Visit Cardiovascular Disease Swathi Munoz M.D. [address] [place] [address] [phone] (Wo rk) documented as of this encounter Procedures Procedure Name Priority Date/Time Associated Diagnosis Comme nts LIPID PANEL, S Routine 02/06/2019 9:03 AM Hyperlipidemi a Results for this CDT Cardiomyopathy procedure are in Ischemic the results Hypertension section. Essential Primar y Obesity Body Mass Index 30-39.9 Adult BASIC METABOLIC Routine 02/06/2019 9:03 AM Hyperlipidemi a Results for this PANEL, S/P CDT Cardiomyopathy procedure are in Ischemic the results Hypertension section. Essential Primar y Obesity Body Mass Index 30-39.9 Adult documented in this encounter Results Lipid Panel (02/06/2019 9:03 AM CDT) P athologist Signature Cholesterol, 104 mg/dL 02/06/2019 Total 10:19 AM CDT Comment: ----REFERENCE VALUE---- Desirable: < 200 Borderline high: 200 - 239 High: > or = 240 Triglycerides 95 mg/dL 02/06/2019 10:19 AM CDT Comment: ----REFERENCE VALUE---- Normal: <150 Borderline high: 150-199 High: 200-499 Very high: > or =500 Cholesterol, HDL, S 50 >=40 mg/dL 02/06/2019 10:19 AM CDT Calculated LDL 35 mg/dL 02/06/2019 10:19 AM CDT Comment: ----REFERENCE VALUE---- Desirable: <100 Above Desirable: 100-129 Borderline high: 130-159 High: 160-189 Very high: > or =190 Cholesterol, Non-HDL, Calculated 54 mg/dL 019 10:19 AM CDT Comment: ----REFERENCE VALUE---- Desirable: <130 Above Desirable: 130-159 Borderline high: 160-189 High: 190-219 Very high: > or =220 Specimen Anatomical Collection Method Collection Time Receive d Time (Source) Location / / Volume Laterality Blood (Blood, 02/06/2019 9:03 AM 02/07/20 9:06 Venous) CDT AM CDT Des Garcia M.D. LAB BLOOD ADD-ON Performing Organization Address City/State/ZIP Code Phon e Number [facility] [address] [address] [facility] Basic Metabolic Panel (02/06/2019 9:03 AM CDT) P athologist Signature Potassium, S 4.7 3.6 - 5.2 02/06/2019 mmol/L 10:19 AM CDT Sodium, S 141 135 - 145 02/06/2019 mmol/L 10:19 AM CDT Chloride, S 107 98 - 107 02/06/2019 mmol/L 10:19 AM CDT Bicarbonate, S 24 22 - 29 02/06/2019 mmol/L 10:19 AM CDT Anion Gap 10 7 - 15 02/06/2019 10:19 AM CDT BUN (Blood Urea 19 8 - 24 02/06/2019 Nitrogen), S mg/dL 10:19 AM CDT Creatinine 1.15 0.74 - 02/06/2019 1.35 mg/dL 10:19 AM CDT eGFR-Non 60 >=60 02/06/2019 Black/ mL/min/BSA 10:19 AM CDT [place] Comment: ----ADDITIONAL INFORMATION---- Estimated GFR calculated using the 2009 CKD_EPI creatinine equation. eGFR-Black/ 70 >=60 mL/min/BSA 2018 10:19 AM CDT Comment: ----ADDITIONAL INFORMATION---- Estimated GFR calculated using the 2009 CKD_EPI creatinine equation. Calcium, Total, S 9.0 8.8 - 10.2 mg/dL 02/06/2019 10:1 9 AM CDT Glucose, S 108 70 - 140 mg/dL 02/06/2019 10:19 AM CDT Specimen Anatomical Collection Method Collection Time Receive d Time (Source) Location / / Volume Laterality Blood (Blood, 02/06/2019 9:03 AM 02/07/20 9:06 Venous) CDT AM CDT Des Garcia M.D. LAB BLOOD ADD-ON Performing Organization Address City/State/ZIP Code Phon e Number [facility] [id number] [address] [facility] documented in this encounter Visit Diagnoses Diagnosis Hyperlipidemia Cardiomyopathy Ischemic Hypertension Essential Primary Obesity Body Mass Index 30-39.9 Adult documented in this encounter
--- OUTSIDE RECORDS SUMMARY | 2022-08-04 11:05 | XMS_ITS | Encounter Summary ---
:1940 Author Organization [facility] Address [address] [place] [address] Care Team Providers Name Role Phone Unavailable Primary Care Provider Unavailable Reason for Referral Outpatient (Routine) - Closed Specialty Diagnoses / Procedures Referred By Contact Refer red To Contact Cardiovascular Disease TISHA Parrish SE, M.D. [address] [place] [address] Referral ID Status Reason Start Date Expiration Date Visits Requ ested Visits Authorized [id number] Closed 02/19/2019 02/19/2020 1 1 Reason for Visit Reason Comments Follow-up Heart Attack 5 years ago. Outpatient (Routine) - Closed Specialty Diagnoses / Procedures Referred By Contact Shena martin To Contact Cardiovascular Disease TISHA Parrish SE, M.D. [address] [place] [address] Referral ID Status Reason Start Date Expiration Date Visits Requ ested Visits Authorized [id number] Closed 02/06/2018 02/06/2019 1 1 Encounter Details Date Type Department Care Team Description 02/19/2019 Office Visit Department of Hardik Garcia, Cardiomyopa thy Ischemic (Primary Dx); Cardiovascular Diseases Des Aviles M.D. Obesity Body Mass Index 30-39.9 Adult; in [id number] [place] [address] [phone] (Work) [phone] Social History Tobacco Use Types Packs/Day Years Used Date Smoking Tobacco: Former Pipe Quit : 1989 Smokeless Tobacco: Never Alcohol Use Standard Drinks/Week Comments Yes 0 (1 standard drink = 0.6 oz pure scotch / whiskey once 1-2 times/week alcohol) Alcohol Habits Answer Date Recorded How often do you have a drink containing 4 or more times a w [place] 06/24/2022 alcohol? 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 - 02/19/2019 1:[address] 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 At this moment the patient denies any particular cardiovascular symptoms that restrict physical activity. No mention of exertional angina, exertional shortness of breath, or congestive symptoms of heart failure such as orthopnea, PND, worsening lower extremity edema, abdominal swelling or unusual weight gain. Denies presyncope or syncope. Past Medical History: as summarized in the HPI ROS: 10 point-review of systems performed and negative except as stated in HPI Vitals and physical examination: BP 138/80 (BP Location: Right arm, Patient Position: Sitting, Cuff Size: Regular) Pulse (!) 58 Resp 24 Ht 176 cm Wt 103 kg BMI 33.12 kg/m?? Neck: no JVD, preserved carotid pulses, no bruits Cardiovascular: regular rhythm, normal S1, normal S2, no clinically significant murmurs Pulmonary: Clear lungs, no rales, no wheezing, no rhonchi Extremities: No edema in lower extremities Neurologic: Awake, alert and oriented, interactive Lab data and workup: I reviewed his blood work which continues to be remarkably stable as compared to the year prior. His lipid panel has improved some with a total cholesterol now of 104, HDL of 50, and LDL of 35. Beautiful We reviewed together his most recent echocardiogram 2 years ago, his ejection fraction had normalized to 51% with anterior and apical scar consistent with his previous history Impression/Report and Plan: #1 Chronic stable coronary artery disease, ischemic cardiomyopathy, ejection fraction 51%, [place] heart Association class 1, [place] Class 1 # 2 Obesity with a body mass index over 30 # 3 Metabolic syndrome with impaired fasting glucose, stable #4 Essential hypertension, at goal #5 Mixed hyperlipidemia, at goal From a cardiovascular standpoint the patient is doing exceedingly well with no anginal or congestivesymptoms to declare, tolerating all cardiovascular guideline directed medical therapies. For this visit, I would suggest no particular medication changes. In the absence of symptoms I do not think that there is a specific need to repeat his echocardiogram. I asked him about his preference whether not he would wish to be seen in 1 or 2 years, given his clinical stability, but he prefers a yearly check point which is reasonable for subspecialty Thank you for your consult. Please display page [phone] if further questions/queries, or send an Ligandal message. Best regards documented in this encounter Plan of Treatment Upcoming Encounters Date Type Specialty Care Team Description 08/17/2022 Appointment Radiology Arturo Munoz M.D. [address] [place] [address] [phone] (Reggie valentino) 08/19/2022 Appointment Cardiovascular Disease Swathi Munoz M.D. [address] [place] [address] [phone] (Reggie valentino) 08/19/2022 Appointment Radiology Arturo Munoz M.D. [address] [place] [address] [phone] (Reggie valentino) 08/25/2022 Office Visit Cardiovascular Disease Swathi Munoz M.D. [address] [place] [address] [phone] (Reggie valentino) Scheduled Referrals Name Type Priority Associated Order Schedule Diagnoses Cardiovascular Disease Outpatient Referral Routine Expected: office visit (clinic) 2019 (Approximate), Expires: 02/19/2022 documented as of this encounter Results ECG 12 Lead (04/29/2020 9:48 AM CDT) P athologist Signature Ventricular Rate 54 BPM MUSE ECG/Min [place] Interval 174 ms MUSE QRSD Interval 92 ms MUSE QT Interval 428 ms MUSE QTC Interval 405 ms MUSE P [place] 66 degrees MUSE R [place] 2 degrees MUSE T Wave [place] 45 degrees MUSE Specimen Anatomical Collection Method [...] Visit Diagnoses Diagnosis Cardiomyopathy Ischemic - Primary Obesity Body Mass Index 30-39.9 Adult Hyperlipidemia Cardiomyopathy Ischemic Obesity Body Mass Index 30-39.9 Adult Hyperlipidemia documented in this encounter
--- OUTSIDE RECORDS SUMMARY | 2022-08-04 11:05 | XMS_ITS | Encounter Summary ---
:1940 Author Organization [facility] Address [address] [place] [address] Care Team Providers Name Role Phone Unavailable Primary Care Provider Unavailable Reason for Visit Reason Comments Rosaronny Outpatient (Routine) - Closed Specialty Diagnoses / Procedures Referred By Contact Refer red To Contact Dermatology Emelina Medina M.D . [facility] Region [address] [place] [address] Referral ID Status Reason Start Date Expiration Date Visits Requ ested Visits Authorized [id number] Closed 05/02/2018 05/02/2019 1 1 Encounter Details Date Type Department Care Team Description 07/31/2018 Office Visit Department of Emelina Medina Rosacea (P jefeary Dx) Dermatology in [place], [place] [address] [place] [phone] Social History Tobacco Use Types Packs/Day Years Used Date Smoking Tobacco: Former Pipe Quit : 1989 Smokeless Tobacco: Never Alcohol Use Standard Drinks/Week Comments Yes 0 (1 standard drink = 0.6 oz pure scotch / whiskey once 1-2 times/week alcohol) Alcohol Habits Answer Date Recorded How often do you have a drink containing 4 or more times a w [place] 06/24/2022 alcohol? How many drinks containing alcohol [...] or relatives? How often do you attend jainism or pentecostal More than 4 time s per year 06/24/2022 services? Do you belong to any clubs or organizations Yes 06/24/2022 such as jainism groups, unions, fraThinkorswim [employer] or athletic groups, or school groups? How [...] place to sleep or slept in a jail (including now)? 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 - 07/31/2018 9:45 AM CST CHIEF COMPLAINT Rosacea recheck HISTORY OF THE PRESENT ILLNESS John Lopes is a pleasant 78 y.o. male who follows up for recheck of rosacea. During hislast visit with me on 05/02/18, the patient started MetroCream twice daily. He does not feel that theMetroCream provided significant improvement, and even that the rosacea mildly improved when he recently stopped use. He additionally notes that MetroCream is very expensive. PAST MEDICAL HISTORY No history of skin cancer PHYSICAL EXAM General: Awake, alert, in no acute distress, and with appropriate affect. Skin: Examination of the face reveals a few, barely elevated acneiform papules on the cheeks, right greater than left. No pustules. IMPRESSION AND PLAN #1 Face: Rosacea The patient's rosacea is well controlled at this time. He will discontinue the MetroCream due to cost concerns, and start Klaron lotion if it is not too expensive. I recommend applying Klaron lotion sparingly to involved areas once daily as needed. He denies allergies to any antibiotics. We discussed that if these medications are cost prohibitive, we may also consider starting an oral antibiotic. Discussed side effects, including increased sun sensitivity. I additionally recommended avoiding aggravating factors such as chocolate, spicy food, alcohol and caffeine. I encouraged sun protection, particularly on his upcoming trip to [place]. He leaves on 09/04/18 for a 4 month stay. The patient will call before he leaves in August to schedule up in 6 months for a rosacea recheck and a full skin cancer screening exam. PATIENT EDUCATION Ready to learn. No apparent learning barriers were identified. Learning preferences include listening. Explained diagnosis and treatment plan; patient/guardian of patient expressed understanding of thecontent. By signing my name below, I, Tabitha Mcfarlane, attest that this documentation has been prepared under the direction and in the presence of Emelina Medina M.D.. Electronically Signed: mona Douglas. 07/31/2018. 9:40 AM . IEmelina M.D., personally performed the services described in this documentation. All medical record entries made by the scribe were at my direction and in my presence. I have reviewed the chart and discharge instructions (if applicable) and agree that the record reflects my personal performance and is accurate and complete. Emelina Medina M.D. . 07/31/2018. 11:21 AM. NDER LET OFF HELPER documented in this encounter Plan of Treatment Upcoming Encounters Date Type Specialty Care Team Description 08/17/2022 Appointment Radiology Arturo Munoz M.D. 200 [place], [place] [phone] (Reggie valentino) 08/19/2022 Appointment Cardiovascular Disease Swathi Munoz M.D. 200 [place], [place] [phone] (Reggie valentino) 08/19/2022 Appointment Radiology Arturo Munoz M.D. [address] [place], [place] [phone] (Wo rk) 08/25/2022 Office Visit Cardiovascular Disease Swathi Munoz M.D. 200 [place], [place] [phone] (Wo rk) documented as of this encounter Visit Diagnoses Diagnosis Rosacea - Primary documented in this encounter
--- OUTSIDE RECORDS SUMMARY | 2022-08-04 11:05 | XMS_ITS | Encounter Summary ---
:1940 Author Organization [facility] [place] Address [address] [place] [address] Care Team Providers Name Role Phone Unavailable Primary Care Provider Unavailable Reason for Referral Outpatient (Routine) - Closed Specialty Diagnoses / Procedures Referred By Contact Refer red To Contact Cardiovascular Disease TISHA Parrish [facility] N Region Des Aviles M.D. [address] [place] [phone] Referral ID Status Reason Start Date Expiration Date Visits Requ ested Visits Authorized [id number] Closed 02/06/2018 02/06/2019 1 1 Reason for Visit Reason Comments Follow-up Here for yearly follow-up. N o chest pain, SOB or edema Outpatient (Routine) - Closed Specialty Diagnoses / Procedures Referred By Contact Refer red To Contact Diagnoses Hyperlipidemia Des Parrish M.D. [address] [place] [phone] Referral ID Status Reason Start Date Expiration Date Visits Requ ested Visits Authorized [id number] Closed 06/17/2017 12/14/2017 1 1 Encounter Details Date Type Department Care Team Description 02/06/2018 Office Visit Department of Hardik Garcia, Cardiomyopa thy Ischemic (Primary Dx); Cardiovascular Diseases Des Aviles M.D. Hyperlipidemia; in [address] Hypertension Essential Primary; [place], [place] Obesity Body Mass Index 30-3 9.[address] [place] [address] [place], [place] [phone] (Work) [phone] Social History Tobacco Use Types Packs/Day Years Used Date Smoking Tobacco: Former Pipe Quit : 1989 Smokeless Tobacco: Never Alcohol Use Standard Drinks/Week Comments Yes 0 (1 standard drink = 0.6 oz pure scotch / whiskey once 1-2 times/week alcohol) Alcohol Habits Answer Date Recorded How often do you have a drink containing 4 or more times a w [place] 06/24/2022 alcohol? How many drinks containing alcohol [...] or relatives? How often do you attend restorationist or adventist More than 4 time s per year 06/24/2022 services? Do you belong to any clubs or organizations Yes 06/24/2022 such as restorationist groups, unions, fraternal or athletic groups, or [...] place to sleep or slept in a nursing home (including now)? 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 - 02/06/2018 9:45 AM CDT Dear , A true delight to meet with you as always. Your cholesterol and blood pressure look great, keep up the great work, continue physical activity as well as goal directed weight loss as you are. Do not hesitate to contact us if there are any questions or concerns in the interim, if God padilla wewill see each other in a year's time Have a wonderful summer, Dr Paredes documented in this encounter Consult Notes Des Peña M.D. 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 I am delighted to hear that he has no symptoms to declare since last time we met about a year. We also discussed again how his echocardiogram showed complete normalization of ventricular function afterup titrating his medications for systolic heart failure. Past Medical History: as summarized in the HPI ROS: 10 point-review of systems performed and negative except as stated in HPI Vitals and physical examination: BP 134/74 (BP Location: Left arm, Patient Position: Sitting, Cuff Size: Regular) Pulse (!) 47 Comment: apical and regular Ht 180 cm Wt 104.2 kg SpO2 98% BMI 32.16 kg/m?? HEENT: Examined and unremarkable Neck: no JVD, preserved carotid pulses, no bruits Cardiovascular: regular rhythm, normal S1, normal S2, no clinically significant murmurs Pulmonary: Clear lungs, no rales, no wheezing, no rhonchi Extremities: No edema in lower extremities Neurologic: Awake, alert and oriented, interactive Lab data and workup: His basic metabolic panel is essentially within normal limits slightly impairedfasting glucose of 108, his lipid panel looks absolutely wonderful with a total cholesterol of 106, HDL of 47, LDL of 38 and triglycerides of 106. 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 He is on excellent medical therapy and this is reflected in the normalization of ventricular function in the echocardiogram obtained last year. I suggested no changes in his current medical regimen, we spoke mostly about therapeutic lifestyle changes particularly the beneficial effects of weight loss, his blood pressure is essentially at goal at this time and I think his recent weight loss of 8 lb has contributed to it. The plan would be to meet in a year's time with basic blood work including a repeat lipid panel as well as a resting electrocardiogram, sooner if there are any additional questions or concerns. documented in this encounter Plan of Treatment Upcoming Encounters Date Type Specialty Care Team Description 08/17/2022 Appointment Radiology Arturo Munoz M.D. [address] [place] [address] [phone] (Wo rk) 08/19/2022 Appointment Cardiovascular Disease Swathi Munoz M.D. [address] [place], [place] [phone] (Wo rk) 08/19/2022 Appointment Radiology Arturo Munoz M.D. [address] [place], [place] [phone] (Wo rk) 08/25/2022 Office Visit Cardiovascular Disease Swathi Munoz M.D. [address] [place], [place] [phone] (Reggie rk) Scheduled Referrals Name Type Priority Associated Order Schedule Diagnoses Cardiovascular Disease Outpatient Referral Routine Expected: office visit (clinic) 2018 (Approximate), Expires: 02/06/2021 documented as of this encounter Procedures Procedure Name Priority Date/Time Associated Diagnosis Comme nts ECG Routine 02/06/2018 9:40 AM Cardiomyopathy Ischemi c Results for this CDT procedure are i n the results section. documented in this encounter Results Lipid Panel (02/06/2019 9:03 AM CDT) athologist Signature Cholesterol, 104 mg/dL 02/06/2019 Total [...] Organization Address City/State/ZIP Code Phon e Number [facility]- [id number] [address] [place] [facility] Basic Metabolic Panel (02/06/2019 9:03 AM [...] >=60 02/06/2019 Black/ mL/min/BSA 10:19 AM CDT [place] Comment: ----ADDITIONAL INFORMATION---- Estimated GFR calculated using [...] Laterality Blood (Blood, 02/06/2019 9:03 AM 02/07/20 19 9:06 Venous) CDT AM CDT Des Garcia M.D. LAB BLOOD ADD-ON Performing Organization Address City/State/ZIP Code Phon e Number [facility]- [id number] [address] [place] [facility] ECG 12 Lead (02/06/2019 8:49 AM CDT) P athologist Signature Ventricular Rate 54 BPM MUSE ECG/Min [place] Interval 162 ms MUSE QRSD Interval 88 ms MUSE QT Interval 428 ms MUSE QTC Interval 405 ms MUSE P [place] 64 degrees MUSE R [place] 21 degrees MUSE T Wave [place] 45 degrees MUSE Specimen Anatomical Collection Method Collection Time Receive d Time (Source) Location / / Volume Laterality 02/06/2019 8:49 AM 9 9:08 CDT AM CDT Impressions MUSE - 02/06/2019 9:08 AM CDT Sinus bradycardia Cannot rule out Anterolateral infarct Nonspecific T wave abnormality When compared with ECG of 06-FEB-2018 09 :40, No significant change was found Narrative This result has an attachment that is no t available. Procedure Note Darian Shea M.D. - 02/06/2019Formatti ng of this note might be different from the original. IMPRESSION: Sinus bradycardia Cannot rule out Anterolateral infarct Nonspecific T wave abnormality When compared with ECG of 06-FEB-2018 09 :40, No significant change was found Des Garcia M.D. ECG ORDERABLES Performing Organization Address City/[facility]/ZIP Code Phon e Number MUSE MUSE NA ECG 12 Lead (02/06/2018 9:40 AM CDT) P athologist Signature Ventricular Rate 47 BPM MUSE ECG/Min [place] Interval 160 ms MUSE QRSD Interval 90 ms MUSE QT Interval 424 ms MUSE QTC Interval 375 ms MUSE P [place] 52 degrees MUSE R [place] 11 degrees MUSE T Wave [place] 53 degrees MUSE Specimen Anatomical Collection Method Collection Time Receive d Time (Source) Location / / Volume Laterality 02/06/2018 9:40 AM 8 9:46 CDT AM CDT Impressions MUSE - 02/06/2018 9:46 AM CDT Marked sinus bradycardia Cannot rule out Anterolateral infarct Nonspecific T wave abnormality No previous ECGs available Narrative This result has an attachment that is no t available. Des Garcia M.D. ECG ORDERABLES Performing Organization Address City/State/ZIP Code Phon e Number MUSE MUSE NA documented in this encounter Visit Diagnoses Diagnosis Cardiomyopathy Ischemic - Primary Hyperlipidemia Hypertension Essential Primary Obesity Body Mass Index 30-39.9 Adult Hyperlipidemia Cardiomyopathy Ischemic Hypertension Essential Primary Obesity Body Mass Index 30-39.9 Adult documented in this encounter
--- OUTSIDE RECORDS SUMMARY | 2022-08-04 11:05 | XMS_ITS | Encounter Summary ---
:1940 Author Organization [facility] Address [address] [place] [address] Care Team Providers Name Role Phone Unavailable Primary Care Provider Unavailable Reason for Referral Outpatient (Routine) - Closed Specialty Diagnoses / Procedures Referred By Contact Refer red To Contact Diagnoses Hyperlipidemia Des Parrish M.D. [address] [place] [address] Referral ID Status Reason Start Date Expiration Date Visits Requ ested Visits Authorized [id number] Closed 06/17/2017 12/14/2017 1 1 Encounter Details Date Type Department Care Team Description 06/17/2017 Orders Only Department of Cardiovascular Hardik elias, Hyperlipidemia Medicine in [place], Des Aviles M.D. [address] [address] [place] [address] [phone] Social History Tobacco Use Types Packs/Day Years Used Date Smoking Tobacco: Former Alcohol Habits Answer Date Recorded How often do you have a drink containing 4 or more times a w [place] 06/24/2022 alcohol? How many [...] or relatives? How often do you attend presybeterian or cheondoism More than 4 time s per year 06/24/2022 services? Do you belong to any clubs or organizations Yes 06/24/2022 such as presybeterian groups, unions, fraternal or athletic groups, or [...] place to sleep or slept in a skilled nursing (including now)? 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 [address] [place] [address] [phone] (Reggie rk) 08/19/2022 Appointment Cardiovascular Disease Swathi Munoz M.D. [address] [place] [address] [phone] (Reggie rk) 08/19/2022 Appointment Radiology Arturo Munoz M.D. [address] [place] [address] [phone] (Reggie rk) 08/25/2022 Office Visit Cardiovascular Disease Swathi Munoz M.D. [address] [place] [address] [phone] (Reggie valentino) Scheduled Referrals Name Type Priority Associated Diagnoses Order S chedule Cardiovascular Disease Outpatient Routine Hyperlipidemia Exp ected: office visit (clinic) Referral 2017 (Approximate), Expires: 01/30/2023 documented as of this encounter Results Lipid Panel (02/06/2018 8:37 AM CDT) athologist Signature Cholesterol, 106 mg/dL 02/06/2018 [facility] Total 9:33 AM CDT [facility] [employer] [facility] Comment: ----REFERENCE VALUE---- Desirable: < 200 Borderline high: 200 - 239 High: > or = 240 Triglycerides 106 mg/dL 02/06/2018 9:33 AM CDT [facility] [employer] LAB Comment: ----REFERENCE VALUE---- Normal: <150 Borderline high: 150-199 High: 200-499 Very high: > or =500 Cholesterol, HDL, S 47 >=40 mg/dL 02/06/2018 9:33 AM CDT [facility] Calculated LDL 38 mg/dL 02/06/2018 9:33 AM CDT [facility] [employer] [facility] Comment: ----REFERENCE VALUE---- Desirable: <100 Above Desirable: 100-129 Borderline high: 130-159 High: 160-189 Very high: > or =190 Cholesterol, Non-HDL, 59 mg/dL 02/06/2018 9:33 AM CDT [facility] [employer] [facility] Comment: ----REFERENCE VALUE---- Desirable: <130 Above Desirable: 130-159 Borderline high: 160-189 High: 190-219 Very high: > or =220 Specimen Anatomical Collection Method Collection Time Receive d Time (Source) Location / / Volume Laterality Blood 02/06/2018 8:37 AM 8 8:38 CDT AM CDT Des Garcia M.D. LAB BLOOD ADD-ON Performing Organization Address City/State/ZIP Code Phon e Number [facility]- [id number] [address] [place] [facility] BMP (Basic Metabolic Panel) (02/06/2018 8:37 AM CDT) athologist Signature Potassium, S 4.9 3.6 - 5.2 02/06/2018 [facility] mmol/L 9:33 AM CDT [facility] [employer] [facility] Sodium, S 140 135 - 145 02/06/2018 [facility] mmol/L 9:33 AM [facility] Chloride, S 106 98 - 107 02/06/2018 [facility] mmol/L 9:33 AM [facility] Bicarbonate, S 24 22 - 29 02/06/2018 [facility] mmol/L 9:33 AM [facility] Anion Gap 10 7 - 15 02/06/2018 [facility] 9:33 AM [facility] BUN (Blood Urea 19 8 - 24 02/06/2018 [facility] Nitrogen), S mg/dL 9:33 AM [facility] Creatinine 1.14 0.74 - 02/06/2018 [facility] 1.35 mg/dL 9:33 AM [facility] eGFR-Non 61 >=60 02/06/2018 [facility] Black/ mL/min/BSA 9:33 AM [facility] Comment: ----ADDITIONAL INFORMATION---- Estimated GFR calculated using the 2009 CKD_EPI creatinine equation. eGFR-Black/ 71 >=60 mL/min/BSA 2017 9:33 AM [facility] Comment: ----ADDITIONAL INFORMATION---- Estimated GFR calculated using the 2009 CKD_EPI creatinine equation. Calcium, Total, S 9.3 8.8 - 10.2 mg/dL 02/06/2018 9 :33 AM CDT [facility] Glucose, S 108 70 - 140 mg/dL 02/06/2018 9:33 AM CDT [facility] Specimen Anatomical Collection Method Collection Time Receive d Time (Source) Location / / Volume Laterality Blood 02/06/2018 8:37 AM 8 8:38 CDT AM CDT Des Garcia M.D. LAB BLOOD ADD-ON Performing Organization Address City/State/ZIP Code Phon e Number [facility]- [id number] [address] [place] [facility] documented in this encounter Visit Diagnoses Diagnosis Hyperlipidemia documented in this encounter
--- OUTSIDE RECORDS SUMMARY | 2022-08-04 11:05 | XMS_ITS | Encounter Summary ---
:1940 Author Organization [facility] Address [address] [place] [address] Care Team Providers Name Role Phone Unavailable Primary Care Provider Unavailable Encounter Details Date Type Department Care Team Description 02/06/2018 Hospital Encounter Department of Haydee Parrish lipidemia Laboratory Medicine in Des Aviles M.D. [place], [facility] [address] [place] [address] [phone] (Work) [phone] Social History Tobacco Use Types Packs/Day Years Used Date Smoking Tobacco: Former Pipe Quit : 1989 Smokeless Tobacco: Never Alcohol Use Standard Drinks/Week Comments Yes 0 (1 standard drink = 0.6 oz pure scotch / whiskey once 1-2 times/week alcohol) Alcohol Habits Answer Date Recorded How often do you have a drink containing 4 or more times a w [place] 06/24/2022 alcohol? How many drinks containing alcohol [...] or relatives? How often do you attend buddhist or voodoo More than 4 time s per year 06/24/2022 services? 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 glucosamine-chondroitin Take 1 capsule by 0 06/05 (GLUCOSAMINE-CHONDROITIN) mouth 2 (two) 500-400 mg per capsule times a day. nitroglycerin (NITROSTAT) Place 1 tablet 0 2017 0.4 mg SL tablet under the tongue as needed. losartan (COZAAR) 50 mg Take 1 tablet by 0 201606/22/2021 tablet mouth daily. multivit with Take 1 tablet by 0 01/24/201706/22 minerals/lutein mouth daily. (MULTIVITAMIN 50 PLUS ORAL) documented as of this encounter Plan of Treatment Upcoming Encounters Date Type Specialty Care Team Description 08/17/2022 Appointment Radiology Arturo Munoz M.D. [address] [place], [place] [phone] (Reggie valentino) 08/19/2022 Appointment Cardiovascular Disease Swathi Munoz M.D. [address] [place], [place] [phone] (Reggie valentino) 08/19/2022 Appointment Radiology Arturo Munoz M.D. [address] [place], [place] [phone] (Wo rk) 08/25/2022 Office Visit Cardiovascular Disease Swathi Munoz M.D. [address] [place], [place] [phone] (Wo rk) documented as of this encounter Procedures Procedure Name Priority Date/Time Associated Diagnosis Comme nts LIPID PANEL, S Routine 02/06/2018 8:37 AM Hyperlipidemia Resul ts for this CDT procedure are i n the results section. BASIC METABOLIC Routine 02/06/2018 8:37 AM Hyperlipidemia Resu lts for this PANEL, S/P CDT procedure are i n the results section. documented in this encounter Results Lipid Panel (02/06/2018 8:37 AM CDT) P athologist Signature Cholesterol, 106 mg/dL 02/06/2018 [facility] Total 9:33 AM CDT [facility] Comment: ----REFERENCE VALUE---- Desirable: < 200 Borderline high: 200 - 239 High: > or = 240 Triglycerides 106 mg/dL 02/06/2018 9:33 AM CDT [facility] Comment: ----REFERENCE VALUE---- Normal: <150 Borderline high: 150-199 High: 200-499 Very high: > or =500 Cholesterol, HDL, S 47 >=40 mg/dL 02/06/2018 9:[address] [facility] [employer] [facility] Calculated LDL 38 mg/dL 02/06/2018 9:33 AM CDT [facility] [employer] [facility] Comment: ----REFERENCE VALUE---- Desirable: <100 Above Desirable: 100-129 Borderline high: 130-159 High: 160-189 Very high: > or =190 Cholesterol, Non-HDL, 59 mg/dL 02/06/2018 9:33 AM CDT [facility] Comment: ----REFERENCE VALUE---- Desirable: <130 Above Desirable: 130-159 Borderline high: 160-189 High: 190-219 Very high: > or =220 Specimen Anatomical Collection Method Collection Time Receive d Time (Source) Location / / Volume Laterality Blood 02/06/2018 8:37 AM 8 8:38 CDT AM CDT Des Garcia M.D. LAB BLOOD ADD-ON Performing Organization Address City/State/ZIP Code Phon e Number [facility]- [address] [place] [address] [place] [facility] BMP (Basic Metabolic Panel) (02/06/2018 8:37 AM CDT) athologist Signature Potassium, S 4.9 3.6 - 5.2 02/06/2018 [facility] mmol/L 9:33 AM [facility] Sodium, S 140 135 - 145 02/06/2018 [facility] mmol/L 9:33 AM [facility] Chloride, S 106 98 - 107 02/06/2018 [facility] mmol/L 9:33 AM [facility] Bicarbonate, S 24 22 - 29 02/06/2018 [facility] mmol/L 9:33 AM [facility] Anion Gap 10 7 - 15 02/06/2018 [facility] 9:33 AM [facility] BUN (Blood Urea 19 8 - 24 02/06/2018 [facility] Nitrogen), S mg/dL 9:33 AM [facility] Creatinine 1.14 0.74 - 02/06/2018 [facility] 1.35 mg/dL 9:33 AM [facility] eGFR-Non 61 >=60 02/06/2018 [facility] Black/ mL/min/BSA 9:33 AM [facility] LAB Comment: ----ADDITIONAL INFORMATION---- Estimated GFR calculated using the 2009 CKD_EPI creatinine equation. eGFR-Black/ 71 >=60 mL/min/BSA 2017 9:33 AM [facility] Comment: ----ADDITIONAL INFORMATION---- Estimated GFR calculated using the 2009 CKD_EPI creatinine equation. Calcium, Total, S 9.3 8.8 - 10.2 mg/dL 02/06/2018 9 :33 AM CDT [facility] Glucose, S 108 70 - 140 mg/dL 02/06/2018 9:33 AM CDT M [facility] Specimen Anatomical Collection Method Collection Time Receive d Time (Source) Location / / Volume Laterality Blood 02/06/2018 8:37 AM 8 8:38 CDT AM CDT Des Garcia M.D. LAB BLOOD ADD-ON Performing Organization Address City/State/ZIP Code Phon e Number [facility]- [id number] [address] [place] [facility] documented in this encounter Visit Diagnoses Diagnosis Hyperlipidemia documented in this encounter
--- OUTSIDE RECORDS SUMMARY | 2022-08-04 11:05 | XMS_ITS | Encounter Summary ---
:1940 Author Organization [facility] Address [address] [place] [address] Care Team Providers Name Role Phone Unavailable Primary Care Provider Unavailable Reason for Visit Reason Comments Skin Check Appointment Request (Routine) - Closed Specialty Diagnoses / Procedures Referred By Contact Refer red To Contact Family Medicine Referral ID Status Reason Start Date Expiration Date Visits Requ ested Visits Authorized [id number] Closed 09/20/2019 09/19/2020 1 Encounter Details Date Type Department Care Team Description 04/07/2020 Office Visit Department of Emelina Medina, Tumor Skin Uncertain Behavior (Primary Dx); Dermatology in [place] [facility]; [place], [place] [address] [facility] [place]; [address] [place] [address] [place] [phone] Social History Tobacco Use Types Packs/Day Years Used Date Smoking Tobacco: Former Pipe Quit : 1989 Smokeless Tobacco: Never Alcohol Use Standard Drinks/Week Comments Yes 0 (1 standard drink = 0.6 oz pure scotch / whiskey once 1-2 times/week alcohol) Alcohol Habits Answer Date Recorded How often do you have a drink containing 4 or more times a w [place] 06/24/2022 alcohol? How many drinks containing alcohol [...] or relatives? How often do you attend yazdanism or religion More than 4 time s per year 06/24/2022 services? 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 - 04/07/2020 10:00 AM CDT SUBJECTIVE CHIEF COMPLAINT / REASON FOR VISIT Skin cancer screening exam Examine Rosacea involving the face HISTORY OF PRESENT ILLNESS Mr. John Lopes is a 79 y.o. male who presents today for a full skin cancer screening examination. He would also like an examination of rosacea involving his face. The patient denies a personal history of skin cancer or family history for melanoma. He uses sunscreen intermittently. Allergies Allergen Reactions ??? Pollen Extracts Other (see comments) Nasal congestion MEDICAL HISTORY No history of skin cancer FAMILY HISTORY No family history for melanoma OBJECTIVE PHYSICAL EXAMINATION General: Awake, alert, in no acute distress, and with appropriate affect. Eyes: No scleral injection or icterus. No eyelid abnormalities. Lymph: No lower extremity edema. Skin: I have examined the scalp, face, neck, chest, abdomen, back, bilateral upper extremities, and bilateral lower extremities. Examination reveals a total of 11 AKs including 1 involving the vertex scalp, 5 involving the forehead, 1 involving the skin above the right eyebrow, 1 involving the right ear helix, 2 involving the left ear helix, and 2 involving the left extensor arm. Examination of the face reveals few acne macules compatible with rosacea. Examination of the trunk and extremities reveals several benign-appearing nevi and SKs. Examination of the right upper paraspinal back reveals a slightly hyperkeratotic papule measuring 8 mm x 7 mm. He has minimal rosacea involving his face today and he has not concerned with treating it. ASSESSMENT / PLAN #1 Head and extremities: Multiple AKs x12 Given the precancerous nature of this lesion(s), treatment is medically indicated. After discussion of the risks, benefits and alternatives to treatment with cryotherapy, informed consent was obtained.We treated a total of 12 lesion(s) with two 10-second freeze-thaw cycles of liquid nitrogen cryotherapy. The patient tolerated the procedure well. Aftercare instructions were provided in written and verbal form to the patient. Should any of these lesions recur, the patient should return for biopsy or further evaluation. Discussed the risks, benefits, alternatives, and the necessity of other members of the healthcare team participating in the procedure. All questions answered and consent given. #2 Right upper paraspinal back: rule out SCC Photograph taken today. A shave biopsy of this patch was done in clinic today and submitted for pathology. I will correspond with him as to the results and if any further treatment is needed. CONSENT Discussed the risks, benefits, alternatives, and the necessity of other members of the healthcare team participating in the procedure. All questions answered and consent given. ?? UNIVERSAL PROTOCOL Procedural pause conducted to verify: correct patient identity, procedure to be performed, and as applicable, correct side and site, correct patient position, and availability of implants, special equipment, or special requirements. ?? PROCEDURE INFORMATION Shave biopsy. ?? We explained the potential diagnosis and recommended that we obtain a biopsy. The risks and benefitsof the procedure were discussed, and the patient consented to these procedures. Using 1% lidocaine with epinephrine for local anesthesia, a shave biopsy was obtained from the right upper paraspinal. Biopsy submitted to Dermatopathology for H&E. Special stains will be performed as indicated. The ble eding was well controlled with application of aluminum chloride. Dressing was applied, and wound care instructions were explained. Biopsy results and any further recommendations will be communicated tothe patient by letter. Patient given pamphlet [id number]. #3 Multiple benign-appearing nevi The ABCDE criteria for melanoma was reviewed with the patient. None of the patient's nevi reach the clinical threshold for biopsy. I recommend continued sun protection, self-skin examinations, and observation. Should any of the patient's nevi change in size, color, texture, or shape or develop symptoms such as itching or bleeding, I recommend an immediate return visit for reassessment. #4 Multiple SKs The benign nature of the skin lesion(s) was discussed with the patient. No treatment is required. I recommend continued observation. Should symptoms or changes develop related to this condition, I would recommend a return visit for reassessment. PATIENT EDUCATION: Ready to learn. No apparent learning barriers were identified. Learning preferences include listening. Explained diagnosis and treatment plan; patient/guardian of patient expressed understanding of thecontent. documented in this encounter Miscellaneous Notes Result Encounter Note - Emelina Medina M.D. - 04/14/2020 11:44 AM CDT Right upper paraspinal back: Hypertrophic AK- requiring further treatment with curettage and cryotherapy at [facility] within the next 3-6 weeks.. Please send AK letter requiring further treatment and asked patient to schedule an appointment at [facility]. Thanks documented in this encounter Plan of Treatment Upcoming Encounters Date Type Specialty Care Team Description 08/17/2022 Appointment Radiology Arturo Munoz M.D. [address] [place], [place] [phone] (Reggie valentino) 08/19/2022 Appointment Cardiovascular Disease Swathi Munoz M.D. [address] [place] [phone] (Reggie valentino) 08/19/2022 Appointment Radiology Arturo Munoz M.D. [address] [place], [place] [phone] (Reggie valentino) 08/25/2022 Office Visit Cardiovascular Disease Swathi Munoz M.D. [address] [place], [place] [phone] (Wo rk) documented as of this encounter Procedures Procedure Name Priority Date/Time Associated Comments Diagnosis DERMATOPATHOLOGY CONSULT Routine 04/07/2020 10:30 Tumor Skin Results for this AM CDT Uncertain Behavior procedure are in the results section. documented in this encounter Results Dermatopathology Consult (04/07/2020 10:30 AM CDT) Component Value Ref Test Analysis Performed Pathologis t Range Method Time At Signature 04/10/2020 [facility] 11:31 AM CDT Participated in Makenna Urias, 04/10/2020 PDR the [facility]-Pathology 11:31 AM Interpretation Fellow CDT Report Shahram Otto 04/10/2020 PDR electronically Lv Christensen 11:31 AM signed by CDT Gross Received in formalin labeled with the patient's name, 04/10/2020 PDR Description: medical record number, and right upper paraspinal ramandeep k is 11:31 AM a 0.9 x 0.7 x 0.1 cm pale rutherford skin shave biopsy. CDT Encompassing nearly the entire skin surface is a rutherford-yellow, raised, firm, smooth lesion with irregular borders. ??Centrally located within the lesion is a 0.6 x 0.4 cm rutherford, depressed, lepidic area. ??The specimen is bisected longitudinally and submitted entirely in cassette A1. Grossed by EULA. Interpetation FINAL DIAGNOSIS 04/10/2020 [facility] A. ??DermPath Consult Wet Tissue; Right upper paraspinal 11:31 AM back CDT , Skin shave biopsy: ??Hypertrophic actinic keratosis with follicular extension, involving biopsy border Specimen Anatomical Collection Method Collection Time Receive d Time (Source) Location / / Volume Laterality Tissue 04/07/2020 10:30 04/08/2020 8:56 AM CDT AM CDT Narrative This result has an attachment that is no t available. Emelina Medina M.D. LAB PATH DERM ORDERABLES Performing Organization Address City/State/ZIP Code Phon e Number [facility] [address] [place], [place] [address] [facility] [place] [address] [facility] [address] documented in this encounter Visit Diagnoses Diagnosis Tumor Skin Uncertain Behavior - Primary Keratosis Actinic Nevi Multiple Keratosis Seborrheic documented in this encounter Administered Medications Inactive Administered Medications - up to 3 most recent administrations Medication Order MAR Action Action Date Dose Rate Site lidocaine-EPINEPHrine 1 %-1:100,000 Given 04/07/2020 10:35 AM CD T 1 mL injection 1 mL (XYLOCAINE W/EPI) 1 mL, infiltration, Once, On Tue04/07/20 at 1030, For 1 dose documented in this encounter
--- OUTSIDE RECORDS SUMMARY | 2022-08-04 11:05 | XMS_ITS | Encounter Summary ---
:1940 Author Organization [facility] Address [address] [place] [address] Care Team Providers Name Role Phone Unavailable Primary Care Provider Unavailable Encounter Details Date Type Department Care Team Description 01/24/2017 Hospital Encounter HX [facility] CARDIOLOG Des Mayen M.D. [address] [place], [place] [address] (Wo rk) Social History Tobacco Use Types Packs/Day Years Used Date Smoking Tobacco: Never Assessed Alcohol Habits Answer Date Recorded How often do you have a drink containing 4 or more times a w [place] 06/24/2022 alcohol? How many drinks containing alcohol [...] or relatives? How often do you attend methodist or religion More than 4 time s per year 06/24/2022 services? Do you belong to any clubs or organizations Yes 06/24/2022 such as methodist groups, unions, fraternal or athletic groups, or [...] or slept in a custodial (including now)? 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 losartan (COZAAR) 50 mg Take 1 tablet by 0 201606/22/2021 tablet mouth daily. multivit with Take 1 tablet by 0 01/24/201706/22 minerals/lutein mouth daily. (MULTIVITAMIN 50 PLUS ORAL) documented as of this encounter Consult Notes Des Peña M.D. - 01/24/2017 12:11 PM CDT [facility] REFERRAL SOURCE Balbir Guallpa MD CHIEF COMPLAINT/REASON FOR VISIT Followup on chronic ischemic cardiomyopathy, transfer of care from [facility]. 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 Óscar Archer and Balbir Guallpa at the [facility] for chronic ischemic cardiomyopathy. To summarize, he sustained an anterior myocardial infarction in 2012 that was subject to pharmaco-invasive approach with thrombolysis first and then coronary angiography at the [facility] with a subtotal occlusion of the mid LAD artery for which he received a drug-eluting stent. His ejection fraction after the procedure was 50% to 53%. Since then, he has done very well, in terms of no recurrences of angina or congestive symptoms. Specifically, he denies orthopnea, PND or lower extremity edema. No diaphoresis, nausea or vomiting. He continues to be active and goes 2 times to the local fitness center, performing a combination of aerobic activity, as well as some light weight training. Three days a week, he golfs nine holes. With his level of activity, he denies any symptoms. He asks very smart questions about potential ways to lose additional weight. Since his myocardial infarction, he lost a total of 20 pounds but has not lost anyadditional weight as of recent. PAST MEDICAL/SURGICAL HISTORY As indicated in the history of present illness. SYSTEMS REVIEW A 10-point review of system performed, negative except as indicated in the history of present illness. PHYSICAL EXAMINATION VITAL SIGNS: Blood pressure of 156/84, pulse of 56 and regular. GENERAL: Very pleasant senior gentleman who appears well, robust, in no acute distress. HEENT: Unremarkable. NECK: Supple. No jugular venous distention. CARDIAC: He has a normal S1 and S2. No clinical or significant murmurs. LUNGS: Clear. No rales. No wheezing. DIAGNOSTICS I did review the most recent echocardiogram in our system, which was dated May 2016. His ejection fraction was calculated to be 41%. Visual estimated between 40% and 45% with no significant valvedisease, regional wall motion abnormalities that were consistent with his anterior infarction due missy LAD culprit. IMPRESSION/REPORT/PLAN 1. Ischemic cardiomyopathy, status post drug-eluting stent. 2. The mid left anterior descending in the setting of an anterior ST segment elevation myocardial infarction, 2012. Ejection fraction of 40% to 45%. 3. Chronic hypertension. 4. Modified hyperlipidemia. 5. Obesity with a body mass index over 30. 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 He continues to do well from a symptoms standpoint. He would be a Citizen [place] class 1, as well as a [place] [employer] class 1 atthe present time; therefore, having no restrictive symptoms, in terms of lifestyle. Dr. Mcgregor Askew increased his angiotensin receptor cami losartan to 75 mg, and we wanted to determine response to his medication titration at this time. The plan was to obtain a limited echocardiogram for ejection fraction, but this was not obtained. I have now reordered the echocardiogram to evaluate his response.I am confident that we will be able to increase the losartan to target dose of 100 mg daily based onhis recent systolic blood pressures, which of note, look completely at goal as compared to today's value in the office, which appears to be higher than usual. I also agree that there is probably less of a chance to increase his beta cami given his current bradycardia on 6.25 mg 2 times a day of carvedilol. In addition, he has a remote history of smoking and given his age, a 1 time screening for abdominal aortic aneurysm is indicated. We will obtain those investigations and once the results are available, I will contact Dr. Lopes to see if there is anything in addition that we would have to do other than increasing his losartan to a target dose of 100 mg daily. I do not think that he needs any diuretic therapy. He appears to be euvolemic at the present time. After reviewing the aforementioned tests, we will likely want to see Professor Lopes in 1 year's time with basic blood work and a resting EKG. This would be a level 4 visit, 60 minutes with the patient. 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 Intake/History Entered On: 01/24/2017 12:57 CDT Performed On: 01/24/2017 12:55 CDT by TOMASA HAMM help desk support Chief Complaint : FOllow up Peripheral Pulse Rate : 56 /min (LOW) Systolic Blood Pressure : 156 mmHg (HI) Diastolic Blood Pressure : 84 mmHg NIBP Mean : 108 mmHg Blood Pressure Cuff Size : Regular Actual Weight : 102 kg(Converted to: 224 lb 14 oz) Dosing Weight Clinic : 102 kg TOMASA HAMM RN - 01/24/2017 12:55 CDT General Info Information Given By : Patient Languages : Samoan Is Patient Female and 13-50 no hysterectomy : No TOMASA HAMM RN - 01/24/2017 12:55 CDT Subjective Pain Symptoms : No Cardiovascular Symptoms : None Respiratory Symptoms : Shortness of breath TOMASA HAMM RN - 01/24/2017 12:55 CDT Dependent Habits Smoking Status : Former smoker Tobacco 2A : Yes Tobacco Use/Currently Using : No Tobacco Use/Last 30 Days : No Tobacco Use/Last 12 months : No TOMASA HAMM RN - 01/24/2017 12:55 CDT Allergy (As Of: 01/24/2017 12:57:34 CDT) Allergies (Active) No Known Medication Allergies Estimated Onset Date: Unspecified ; Created By: GRIFFIN BERNARD RN;Reaction Status: Active ; Category: Drug ; Substance: No Known Medication Allergies ; Type: Allergy ; Updated By: GRIFFIN BERNARD RN; Reviewed Date: 01/20/2017 8:12 CDT Exercise Vitals Days/Wk of Moderate or Greater Exercise : 4 Minutes/Day Engaged in Activity : 60 Total Minutes Exercise/Week : 240 TOMASA HAMM RN - 01/24/2017 12:55 CDT Diabetes Intake Do You Have Diabetes : No TOMASA HAMM RN - 01/24/2017 12:55 CDT Source: [facility] POWERCHART Document Id: [id number] CDT!30 documented in this encounter Plan of Treatment Upcoming Encounters Date Type Specialty Care Team Description 08/17/2022 Appointment Radiology Arturo Munoz M.D. [address] [place] [phone] (Wo rk) 08/19/2022 Appointment Cardiovascular Disease Swathi Munoz M.D. [address] [place] [phone] (Wo rk) 08/19/2022 Appointment Radiology Arturo Munoz M.D. [address] [place] [phone] (Wo rk) 08/25/2022 Office Visit Cardiovascular Disease Swathi Munoz M.D. [address] [place] [phone] (Wo rk) documented as of this encounter Visit Diagnoses Not on filedocumented in this encounter
--- OUTSIDE RECORDS SUMMARY | 2022-08-04 11:05 | XMS_ITS | Encounter Summary ---
:1940 Author Organization [facility] Address [address] [place] [address] Care Team Providers Name Role Phone Unavailable Primary Care Provider Unavailable Encounter Details Date Type Department Care Team Description 02/06/2019 Hospital Encounter Department of Hardik Garcia, [facility] lipidemia; Radiology in [place] Cardiomyopathy Ischemic; [address] Hypertension Essential Primary; [address] [place] [address] Obesity Bod y Mass Index 30-[address] [address] [place], [place] [phone] (Work) [phone] Social History Tobacco Use Types Packs/Day Years Used Date Smoking Tobacco: Former Pipe Quit : 1989 Smokeless Tobacco: Never Alcohol Use Standard Drinks/Week Comments Yes 0 (1 standard drink = 0.6 oz pure scotch / whiskey once 1-2 times/week alcohol) Alcohol Habits Answer Date Recorded How often do you have a drink containing 4 or more times a w [place] 06/24/2022 alcohol? How many drinks containing alcohol [...] or relatives? How often do you attend episcopalian or rastafarian More than 4 time s per year 06/24/2022 services? 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 [address] [place], [place] [phone] (Wo rk) 08/19/2022 Appointment Cardiovascular Disease Swathi Munoz M.D. [address] [place] [phone] (Wo rk) 08/19/2022 Appointment Radiology Arturo Munoz M.D. [address] [place] [phone] (Wo rk) 08/25/2022 Office Visit Cardiovascular Disease Swathi Munoz M.D. [address] [place] [phone] (Wo rk) documented as of this encounter Procedures Procedure Name Priority Date/Time Associated Diagnosis Comme nts ECG Routine 02/06/2019 8:49 AM Hyperlipidemi a Results for this CDT Cardiomyopathy procedure are in the Ischemic results section. Hypertension Essential Primar y Obesity Body Mass Index 30-39.9 Adult documented in this encounter Results ECG 12 Lead (02/06/2019 8:49 AM CDT) P athologist Signature Ventricular Rate 54 BPM MUSE ECG/Min PA Interval 162 ms MUSE QRSD Interval 88 ms MUSE QT Interval 428 ms MUSE QTC Interval 405 ms MUSE P [place] 64 degrees MUSE R [place] 21 degrees MUSE T Wave [place] 45 degrees MUSE Specimen Anatomical Collection Method [...]
--- OUTSIDE RECORDS SUMMARY | 2022-08-04 11:05 | XMS_ITS | Clinical Summary ---
:1940 External Reference #:RESEARCH Author Organization [facility] [place] [address] Care Team Providers Name Role Phone Dimitry Wilson MD Primary Care Provider Allergies No known active allergies Medications Medication Sig Dispensed Refills Start Date End Date Status glucosamine-chondroitin Take 1 capsule 0 06/05/2013 Active , 500-400 mg, (COSAMIN by mouth 2 DS 500/400) 500-400 mg times daily. cap psyllium (FIBER) 0.52 Take 1 capsule 0 06/05/2013 Active gram capsule by mouth 2 times daily. aspirin enteric coated Take 1 tablet 0 02/11/2014 Active 81 mg tablet by mouth once daily with a meal. carvedilol (COREG) 6.25 Take 1 tablet 180 tablet 3 05/13/2014 Active mg tabletIndications: by mouth 2 Unspecified essential times daily hypertension, CAD with meals. (coronary artery disease) losartan (COZAAR) 50 mg Take 1 tablet 90 tablet 3 05/13/2014 Active tabletIndications: by mouth once Unspecified essential daily. hypertension cholecalciferol Take 1 capsule 100 capsule 3 05/15/2014 Active (VITAMIN D-3) 2,000 by mouth once unit daily. capsuleIndications: Vitamin D deficiency NITROSTAT 0.4 mg DISSOLVE ONE 25 tablet 1 07/19/2014 Active sublingual TABLET UNDER tabletIndications: CAD THE TONGUE (coronary artery EVERY 5 MINUTES disease) NEEDED FOR CHEST PAIN. DO NOT EXCEED A TOTAL OF 3 DOSES IN 15 MINUTES polyethylene Take 240 mL by 4000 mL 0 01/06/2015 A ctive glycol-electrolyte mouth every 10 (NULYTELY) 420 gram minutes. solutionIndications: Health care maintenance atorvastatin (LIPITOR) Take 1 tablet 90 tablet 3 07/24/2015 Active 20 mg by mouth once tabletIndications: daily. Hyperlipidemia with target LDL less than 70, ST elevation myocardial infarction (STEMI) of anterolateral wall (HC), Coronary artery disease due to lipid rich plaque Active Problems Problem Noted Date Coronary artery disease due to lipid rich plaque 07/24 H/O adenomatous polyp of colon 02/17/2015 Health care maintenance 02/04/2015 Postoperative state 07/17/2014 Vitamin D deficiency 05/15/2014 Right knee pain 05/13/2014 Actinic keratoses 05/13/2014 Prediabetes - NEW - 05/13/2014 - A1c 5.8% 05/13/2014 Sinus bradycardia 06/11/2013 Regional wall motion abnormality of heart - Apical ant erior wall and the 06/05/2013 anteroseptum s/p transmural infarction 05/29/2013 ST elevation myocardial infarction (STEMI) of anterola teral wall - 06/05/2013 05/29/2013 S/P drug eluting coronary stent placement - Mid LAD - 05/29/2013 06/05/2013 Unknown and unspecified causes of morbidity 06/04/2013 ACP (advance care planning) 05/30/2013 Overview: Formatting of this note is dif ferent from the original. Patient has identified Health Care Agent (s): Yes Add Health Care Agents: Yes Health Care Agent(s): Primary Health Care Agent: Theresa Marianne Relationship: spouse Secondary Health Care Agent: Daron lowe Relationship: son Conservator: Relationship: Phone: Guardian: Relationship: Phone: Patient has Advance Care Plan Documents (Health Care Directive, POLST): Yes Advance Care Plan Documents: Health Care Directive Patient has identified Specific Treatmen t Preferences: Yes Specific Treatment Preferences: a.) Code Status: CPR/Attempt Resuscitation Hyperlipidemia LDL goal < 70 05/29/2013 Knee pain, bilateral 04/14/2013 ECZEMA 03/30/2012 SEBORRHEIC KERATOSIS 03/30/2012 OVERWEIGHT 03/31/2011 TICK BITE 03/11/2011 SKIN LESION 09/08/2010 Overview: Rt side of neck below ear for 4 mos HYPERTENSION DIVERTICULOSIS OF COLON ALLERGIC RHINITIS CAUSE UNSPECIFIED ILIOTIBIAL BAND SYNDROME, RIGHT KNEE Resolved Problems Problem Noted Date Resolved Date Examination of participant or control in clinical research 0 11/02/2013 06/13/2014 Overview: Post Conditioning II Study. Type: AMI Warfarin anticoagulation 06/06/2013 05/13/2014 CAD (coronary artery disease) 05/30/2013 07/24/2015 ST elevation myocardial infarction (STEMI) of anterolateral 05/29/2013 06/05/2013 wall ACNE 03/30/2012 07/17/2013 VARICOSE VEINS OF LEGS, MILD 03/30/2012 07/17/2013 Recurrent right inguinal hernia 03/30/2012 07/17/20 14 SINUSITIS, CHRONIC 06/29/2010 07/13/2010 DYSHIDROTIC ECZEMA 07/17/2013 Immunizations Name Administration Dates Next Due Influenza A (H1N1), Inactivated 07/25/2009 Influenza Virus, Unspecified 07/11/2012, 06/11/2011, 010, 06/19/2009, 06/21/2008, 06/13/2007 Influenza, IIV3 (Age >=3 years) 06/05/2013 Influenza, IIV4 05/13/2014 Td, Preservative Free (age >= 7 06/26/2009 Years) Zoster (Zostavax-ZVL, live) 08/16/2008 Family History Medical History Relation Name Comments Cancer No Family History Diabetes No Family History Heart Disease No Family History CAD in Uncle Relation Name Status Comments Child 1 Alive Child 2 Alive Father (Age 90s) Mother (Age 90s) borderline DM Sister Alive vericose veins, obesity Social History Tobacco Use Types Packs/Day Years Used Date Former Smoker Pipe Quit: 05/29/19 88 Smokeless Tobacco: Never Used Tobacco Cessation: Counseling Given: Yes Alcohol Use Standard Drinks/Week Comments Yes 0 (1 standard drink = 0.6 oz pure alcoho l) 1 Cocktail a day Alcohol Habits Answer Date Recorded How often do you have a drink containing alcohol? Not asked How many drinks containing alcohol do you have on a Not aske d typical day when you are drinking? How often do you have six or more drinks on one Not asked occasion? Comment: 1 Cocktail a day 04/13/2013 Sex Assigned at Date Recorded Not on file Obstetrics History Last Filed Vital Signs Vital Sign Reading Time Taken Comments Blood Pressure 157/82 02/17/2015 11:30 AM CDT Pulse 50 02/17/2015 11:30 AM CDT Temperature 36.6 ??C (97.8 ??F) 02/17/2015 11:30 AM CDT Respiratory Rate 18 02/17/2015 11:30 AM CDT Oxygen Saturation 94% 02/17/2015 10:50 AM CDT Inhaled Oxygen Concentration - - Weight 98 kg (216 lb) 02/07/2015 10:30 AM CDT Height 177.8 cm (5' 10) 02/07/2015 10:30 AM CDT Body Mass Index 30.99 02/07/2015 10:30 AM CDT Plan of Treatment Health Maintenance Due Date Last Done Comments COVID-19 vaccine series (#1) 1940 Tdap 1951 Depression screening for age 12+ 1951 BMI (ht and wt on same day) for 1958 age 18+ Pneumococcal series for age 65+ (1 2004 - PCV) Zoster (shingles) series for age 0210/11/2008 08/16/2008 50+ (2 of 3) Tetanus booster 06/26/2019 06/26/2009 Influenza for age 65+ 05/06/2022 05/13/2014, 06/05/2013, 07/11/2012, Additional history exists Medical Devices Implanted Type Area Medical Geneticist Device Shelf Model / Identifier Expiration Serial / Lot Date Mesh Proloop Plug Lg - [id number] Right: 08/04/2018 [id number] / Implanted: Qty: 1 on 07/09/2014 by Joselo Pineda MD at [facility] / [id number] Results Not on filefrom Last 3 Months Insurance Payer Benefit Plan / Subscriber ID Effective Dates Phone Addre ss Type Group [employer] INST M[employer] INST xxxxARCH 2014-[place] [phone] [address] MEDICARE PART A MEDICARE PART A [id number] 2004-Presen ATTN: CLAIMS - HB USE ONLY HB ONLY t [address] [place] [address] MEDICARE PART B MEDICARE PART B [id number] Effective for A TTN: CLAIMS - HB USE ONLY HB ONLY all dates [address] [place] [address] MEDICARE MEDICARE [id number] 2015-Presen [address] PROVIDER [place] [address] MEDICA MR MR MEDICA PRIME [id number] 2013-Presen [address] [address] [place] [address] MEDICA MEDICA PRIME [id number] 2012-Presen [address] [address] [place] [address] MEDICA MR MEDICA PRIME [id number] 2012-Presen [address] [address] [place] [address] [phone] (Home) [address] [id number] John Lopes Personal/Family Self 1940 [phone] (Home) [place] [address] [id number] John Lopes Research Self 1940 [phone] [address] (Home) [place] [id number] Advance Directives Documents on File Type Date Recorded Patient 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
--- OUTSIDE RECORDS SUMMARY | 2022-08-04 11:05 | XMS_ITS | Encounter Summary ---
:1940 Author Organization [facility] Address [address] [place] [id number] Care Team Providers Name Role Phone Unavailable Primary Care Provider Unavailable Reason for Referral Outpatient (Routine) - Closed Specialty Diagnoses / Procedures Referred By Contact Refer red To Contact Dermatology Emelina Medina M.D . [facility] Region [address] [place], [place] [phone] Referral ID Status Reason Start Date Expiration Date Visits Requ ested Visits Authorized [id number] Closed 05/02/2018 05/02/2019 1 1 Reason for Visit Reason Comments Acne - New Patient Appointment Request (Routine) - Closed Specialty Diagnoses / Procedures Referred By Contact Refer red To Contact Dermatology Referral ID Status Reason Start Date Expiration Date Visits Requ ested Visits Authorized [id number] Closed 04/07/2018 04/07/2019 1 Encounter Details Date Type Department Care Team Description 05/02/2018 Office Visit Department of Emelina Medina Rosacea (P rimary Dx); Dermatology in [place] Keratosis [place], [place] [address] [phone] Social History Tobacco Use Types Packs/Day Years Used Date Smoking Tobacco: Former Pipe Quit : 1989 Smokeless Tobacco: Never Alcohol Use Standard Drinks/Week Comments Yes 0 (1 standard drink = 0.6 oz pure scotch / whiskey once 1-2 times/week alcohol) Alcohol Habits Answer Date Recorded How often do you have a drink containing 4 or more times a w [place]-apache 06/24/2022 alcohol? How many drinks containing alcohol [...] or relatives? How often do you attend oriental orthodox or episcopalian More than 4 time s per year 06/24/2022 services? 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 - 05/02/2018 2:00 PM CDT CHIEF COMPLAINT Facial rash Skin lesion on nose HISTORY OF THE PRESENT ILLNESS John Lopes is a pleasant 78 y.o. male who is seen by me for the first time today. He presents for a facial rash and one skin lesion on the tip of his nose. He has never been evaluated by dermatology before. He has multiple acne-like lesions on his face which began about one to two years ago. The acne- like lesions do not itch and are not painful. He tried washing his face with Selsun bluewithout relief. The lesion on his nose was pointed out to him by his . The patient himself had never noticed this lesion before his told him about it and he does not know how long the lesion as been present. The patient denies any history of skin cancer. He denies any family history of melanoma. He uses sunscreen intermittently. PAST MEDICAL HISTORY No history of skin cancer FAMILY HISTORY No history of melanoma PHYSICAL EXAM General: Awake, alert, in no acute distress, and with appropriate affect. Skin: Examination of the face reveals several small scattered pustules and a few papules. Examination of the face reveals several actinic keratoses involving the mid nasal bridge x 1, right forehead x 1 and left upper cheek x 2. IMPRESSION AND PLAN #1 Face: Actinic keratosis CONSENT Discussed the risks, benefits, alternatives, and the necessity of other members of the healthcare team participating in the procedure. All questions answered and consent given. ?? PROCEDURE INFORMATION Given the precancerous nature of this lesion(s), treatment is medically indicated. After discussion of the risks, benefits and alternatives to treatment with cryotherapy, informed consent was obtained.We treated a total of 4 lesion(s) with two 20-second freeze-thaw cycles of liquid nitrogen cryotherapy. The patient tolerated the procedure well. Aftercare instructions were provided in written and verbal form to the patient. Should any of these lesions recur, the patient should return for biopsy or further evaluation. Follow up in 1-2 months for recheck if these do not completely resolve. #2 Rosacea I discussed with the patient treatment options including a topical or oral antibiotic. The patient would prefer to start with the topical antibiotic then reassess. I have prescribed MetroCream twice a day. He should wash his face with a gentle soap and lukewarm water twice a day using CeraVe facial cleanser. I discussed with the patient triggers for rosacea which he should avoid. Written materials were provided. Return in 2 months for reassessment or earlier if there is no improvement or worsening. I suspect he may need an oral antibiotic and discuss this with him but he preferred to try the topical 1st. PATIENT EDUCATION Ready to learn. No apparent learning barriers were identified. Learning preferences include listening. Explained diagnosis and treatment plan; patient/guardian of patient expressed understanding of thecontent. By signing my name below, I, Jose Slater, attest that this documentation has been prepared underthe direction and in the presence of Emelina Medina M.D.. Electronically Signed: mona Baig. 05/02/2018. 2:16 PM . I, Emelina Medina M.D., personally performed the services described in this documentation. All medical record entries made by the scribe were at my direction and in my presence. I have reviewed the chart and discharge instructions (if applicable) and agree that the record reflects my personal performance and is accurate and complete. Emelina Medina M.D. . 05/02/2018. 4:37 PM. documented in this encounter Plan of Treatment Upcoming Encounters Date Type Specialty Care Team Description 08/17/2022 Appointment Radiology Arturo Munoz M.D. [address] [place] [phone] (Wo chicoh) 08/19/2022 Appointment Cardiovascular Disease Swathi Munoz M.D. [address] [place] [phone] (Reggie valentino) 08/19/2022 Appointment Radiology Arturo Munoz M.D. [address] [place] [phone] (Reggie valentino) 08/25/2022 Office Visit Cardiovascular Disease Swathi Munoz M.D. [address] [place] [phone] (Reggie valentino) Scheduled Referrals Name Type Priority Associated Order Schedule Diagnoses Dermatology office Outpatient Referral Routine Ex pected: visit (clinic) 08/02/2018 (Approximate), Expires: 05/02/2021 documented as of this encounter Visit Diagnoses Diagnosis Rosacea - Primary Keratosis Actinic documented in this encounter
--- OUTSIDE RECORDS SUMMARY | 2022-08-04 11:05 | XMS_ITS | Encounter Summary ---
:1940 Author Organization [facility] Address [address] [place] [address] Care Team Providers Name Role Phone Unavailable Primary Care Provider Unavailable Encounter Details Date Type Department Care Team Description 04/11/2017 Hospital Encounter HX [facility] Reggie Parrish M.D. [address] [place], [place] [phone] (Wo rk) Social History Tobacco Use Types Packs/Day Years Used Date Smoking Tobacco: Former Alcohol Habits Answer Date Recorded How often do you have a drink containing 4 or more times a w [place] 06/24/2022 alcohol? How many drinks containing alcohol [...] or relatives? How often do you attend moravian or nondenominational More than 4 time s per year 06/24/2022 services? Do you belong to any clubs or organizations Yes 06/24/2022 such as moravian groups, unions, fraternal or athletic groups, or [...] or slept in a prison (including now)? 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 - 05/02/2017 1:58 PM CDT *General Message From: TWYLA BERNARD RN To: WTYLA BERNARD RN; Sent: 05/02/2017 13:58:52 CDT Subject: *General Message Hi Dr. Hardik Garcia, I called John and updated him. He will be gone May 14 to May 20. I askedShirley Castellanos to send you a clam reminder. Thanks - Loulou From: Des Peña M.D. Sent: April 7:16 PM To: Twyla Bernard R.N. Subject: Re: [phone] Thanks loulou sorry i may have overlooked the message on Professor... I will be in [facility] until the 09 of may, my intention would be to call him at that point and discuss throughly Would you be so kind to send me a Mics clam reminder? Most grateful -------- Original Message -------- Subject: From: Twyla Bernard R.N. [email or web address]> Date: Apr 28, 2017, 6:35 AM To: Des Peña M.D. <[email or web address]> [place] John Gallegos called and was wondering about his US and echocardiogram that was done in early April. Could you please review them? He is currently not connected to the portal, but was going to try to get do so. Thanks - Loulou Source: [employer] Document Id: [id number] Miscellaneous - Twyla Bernard R.N. - 04/28/2017 7:36 AM CDT *General Message From: TWYLA BERNARD RN To: TWYLA BERNARD RN; Sent: 04/28/2017 07:36:21 CDT Subject: *General Message [place] John Gallegos called and was wondering about his US and echocardiogram that was done in early April. Could you please review them? He is currently not connected to the portal, but was going to try to get do so. Thanks - Loulou Source: [employer] Document Id: [id number] Miscellaneous - Twyla Bernard R.N. - 04/12/2017 11:31 AM CDT *General Message From: TWYLA BERNARD RN (MS Cardiology Nurse) To: TWYLA BERNARD RN; Sent: 04/12/2017 11:31:25 CDT Subject: *General Message Hi Dr. Stefania Garcia, John Lopes had his echocardiogram and US done yesterday. The results are available for you to review. These were ordered from a January 24, 2017 visit. Emeterio Jamil Source: [employer] Document Id: [id number] Miscellaneous - Conversion, Historical Provider Ser - 04/11/2017 11:59 PM CDT Coding Summary-Paper Based CODING DATE: 04/14/[address] [facility] STATUS: * Discharged to Home or Self Care PAYOR: Medicare ADMIT DX: REASON FOR VISIT DX: FINAL DX: PRINCIPAL: Z13.6 Encounter for screening for cardiovascular disorders SECONDARY: I42.9 Cardiomyopathy, unspecified I25.10 Atherosclerotic heart disease of [place] coronary artery without angina pectoris R93.1 Abnormal findings on diagnostic imaging of heart and coronary circulation PROCEDURES DOCTOR NAME DATE NOTE: The code number assigned matches the documented diagnosis and / or procedure in the patient's chart. However, the narrative phrase printed from the coding software may appear abbreviated, or result in slightly different terminology. Coded By: ALVARO JACKSON Date Saved: 04/14/2017 12:39 pm Source: [employer] Document Id: [id number] documented in this encounter Plan of Treatment Upcoming Encounters Date Type Specialty Care Team Description 08/17/2022 Appointment Radiology Arturo Munoz M.D. [address] [place], [place] [phone] (Reggie valentino) 08/19/2022 Appointment Cardiovascular Disease Swathi Munoz M.D. [address] [place], [place] [phone] (Reggie valentino) 08/19/2022 Appointment Radiology Arturo Munoz M.D. [address] [place], [place] [phone] (Wo rk) 08/25/2022 Office Visit Cardiovascular Disease Swathi Munoz M.D. [address] [place], [place] [phone] (Wo rk) documented as of this encounter Visit Diagnoses Not on filedocumented in this encounter
[2022-08-04] MEDS: TETRACAINE 0.5% OPHTH 1 DROP EYE-RIGHT ×3 (11:07→11:48)
[2022-08-04] MEDS: BRIMONIDINE TARTRATE 0.2% OPHTH 1 DROP EYE-RIGHT ×2 (11:09→11:54)
--- NOTE | 2022-08-04 13:38 | W.PM.OPTPROC ---
Procedure Note Date of procedure: 08/04/22 Will [facility] bill your pro fee for this procedure?: Yes Procedure Description: SURGEON: Diana Benavidez MD PREOPERATIVE DIAGNOSIS: Posterior capsular opacity, right eye POSTOPERATIVE DIAGNOSIS: Posterior capsular opacity, right eye PROCEDURE: YAG laser capsulotomy, right eye ANESTHESIA: Topical. ESTIMATED BLOOD LOSS: None PATHOLOGY SPECIMEN: None COMPLICATIONS: None INDICATIONS: See consult note for details. The risks, benefits and alternatives of the procedure were explained to the patient, who elected to proceed and signed informed consent to do so. PROCEDURE: The patient was brought to the pre-holding area where the right eye was identified as the operative eye. I placed my initials above this eye. The patient received 2 sets of 1 drop of 0.5% tetracaine and 1 drop of 1% tropicamide. They also received 1 drop of 0.2% brimonidine. They received 1 drop of 0.5% tetracaine immediately prior to bringing them back for the procedure. The patient was then brought to the procedure room where the right eye was again identified as the operative eye. A YAG Ta capsulotomy lens was placed on the eye. The laser was administered using a total number of 7 shots with an energy of 2.4 mJ per shot for a total energy of 17 mJ. The patient tolerated the procedure well. DISPOSITION: The patient was taken back to the pre-holding area and given 1 drop of 0.2% brimonidine in the right eye. They were discharged to home in stable condition. The patient was instructed to call me or go to the emergency department with any sudden change, including dramatic loss of vision, severe pain in the eye or eyebrow region, nausea, or vomiting. The patient was instructed to use the 0.2% brimonidine 1 drop 2 times a day in the right eye for 1 week. The patient will follow up in the clinic in 1-2 weeks. Surgeon: Diana Benavidez MD
== END 2022-08-04 11:56 | disposition home or self-care (01) ==
LOC: EYE PRC 10:55
PROVIDERS: PCP Family Medicine; Visit Provider Ophthalmology
DX: H26.9 Unspecified cataract (principal)
CPT/HCPCS: 66821; A9270

== ENCOUNTER 2022-09-30 08:05 | Outpatient (CLI) | payer MEDICARE, BC, SELFPAY ==
[2022-09-30 12:43] LABS: Chloride* 109 mmol/L (96-114)
[2022-09-30 12:44] LABS: Albumin* 3.9 g/dL (3.3-5.0); Sodium* 142 mmol/L (135-149)
[2022-09-30 12:47] LABS: Alanine Aminotransferase* 27 U/L (4-50); Alkaline Phosphatase* 72 U/L (40-150); Aspartate Amino Transferase* 29 U/L (12-35); Blood Urea Nitrogen* 29 mg/dL (7-30); Carbon Dioxide* 27 mmol/L (20-32); Cholesterol* 112 mg/dL (90-199); Creatinine* 1.3 mg/dL (0.5-1.5); Estimated Glomerular Filt Rate 55 ml/min; Glucose* 106 mg/dL (60-115); Potassium* 4.7 mmol/L (3.6-5.1); Total Protein* 6.4 g/dL (6.0-8.3); Triglycerides* 77 mg/dL (40-149)
[2022-09-30 12:48] LABS: HDL Cholesterol* 57 mg/dL (>=40); LDL Cholesterol Calculated 40 mg/dL (<100)
== END 2022-09-30 08:06 | disposition home or self-care (01) ==
LOC: NFLDREF 08:06
PROVIDERS: PCP Family Medicine; Visit Provider Family Medicine
DX: E78.5 Hyperlipidemia, unspecified (principal); I10 Essential (primary) hypertension
CPT/HCPCS: 80053; 80061

== ENCOUNTER 2023-05-23 09:01 | Outpatient (CLI) | payer MEDICARE, BC, SELFPAY | END 2023-05-23 09:02 | disposition home or self-care (01) | LOC: NFLDREF 09:01 | PROVIDERS: PCP Family Medicine; Visit Provider Family Medicine | DX: Z01.818 Encounter for other preprocedural examination (principal) | CPT/HCPCS: 80048 ==

== ENCOUNTER 2023-06-06 08:57 | Day surgery (SDC) | payer MEDICARE, BC, SELFPAY ==
[2023-06-06] VITALS (28 sets, daily range): BP systolic 83–184; BP diastolic 51–97; PULSE 38–55; RESP 12–18; TEMP 35.6–37.3; O2SAT 92–98; BMI 33.5
[2023-06-06] MEDS: OXYCODONE (CR) 10 MG TAB.ER.12H PO (09:15)
[2023-06-06] MEDS: ACETAMINOPHEN 500 MG TABLET 1000 MG PO ×3 (09:15→20:50)
--- NOTE | 2023-06-06 09:34 | CRLHL7_ITS ---
For Patients: As a result of the Cures Act, medical imaging exams and procedure reports are released immediately into your electronic medical record. You may view this report before your referring provider. If you have questions, please contact your health care provider. Indication: POST OP Technique: Two views right knee Findings/Impression: Hardware from a right total knee arthroplasty is in satisfactory position. Bone alignment is normal. No sign of acute fracture. Postop changes are within normal limits. Dictated by Tomas Rosario MD @ 06/07/2023 9:15:15 AM (Electronically Signed)
[2023-06-06] MEDS: LACTATED RINGERS 1000 ML 1,000 ML 100 ML IV (09:45)
[2023-06-06] MEDS: fentaNYL 100 MCG/2 ML inj IVP (10:16)
[2023-06-06] MEDS: MIDAZOLAM HCL 1 MG/ML inj IVP (10:17)
--- NOTE | 2023-06-06 10:27 | SUR.PREOP ---
TIME?OUT:?1015 PT/RN/MDA?VERIFICATION?OF?SURGICAL?SITE,?PROCEDURE,?AND?CONSENT OBTAINED?PRIOR?TO?INVASIVE?PROCEDURE.
[2023-06-06] MEDS: TRANEXAMIC ACID 100 MG/ML INJ 1000 MG IV (10:55)
[2023-06-06] MEDS: CEFAZOLIN 2 GM in 0.9 % SODIUM CHLORIDE Mini-bag 100 ML IVPB ×2 (10:55→17:08)
--- NOTE | 2023-06-06 11:04 | SUR.OPER ---
PATIENT QUESTIONS ANSWERED SATISFACTORILY PREOPERATIVELY. PATIENT BROUGHT TO OR #2 PER CART AFTER ADMINISTRATION OF A BLOCK. Patient positioned supine on OR #2 bed. The perioperative team supported arms bilaterally on arm boards. Final approval of positioning by surgeon.
--- NOTE | 2023-06-06 13:01 | W.ANESCHARGE ---
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
[2023-06-06] MEDS: LACTATED RINGERS 1000 ML 1,000 ML 75 ML IV (13:15)
--- NOTE | 2023-06-06 13:48 | PM.ORPRC ---
Procedure Note Date of procedure: 06/06/23 Procedure: PREOPERATIVE DIAGNOSIS: 1. Right knee osteoarthritis, primary, severe POSTOPERATIVE DIAGNOSIS: 1. Right knee osteoarthritis, primary, severe PROCEDURE: 1. Right total knee arthroplasty SURGEON: Bao Warner MD. AGILE PROJECT MANAGER: Darian CORTES - Of note, a skilled document control assistant was critical for this case to aid in patient positioning, tissue retraction, limb manipulation/positioning, and closure. ANESTHESIA: Spinal anesthetic IMPLANTS: DePuy J&J all cemented TKA - Attune PS femur size 7, size 6 tibia, 6 mm poly spacer, 38 mm patella TOURNIQUET: 75 min at 300 torr EBL: 50 ml COMPLICATIONS: None evident INDICATIONS: The patient is a pleasant 83-year-old male who has experienced severe right knee pain and difficulty bearing weight. Workup included x-rays which revealed severe osteoarthrosis in the knee. Given the deformity, the dysfunction, and the pain, as well as the failure of nonoperative management, recommendation was made for surgery. FINDINGS: Diffuse, full-thickness chondral loss throughout the medial compartment with degenerative meniscus pathology. Significant patellofemoral chondromalacia. To a lesser degree lateral compartment chondromalacia. Moderate effusion upon entering the joint DESCRIPTION OF PROCEDURE: Following a thorough discussion of risks, benefits, and alternatives consent was obtained and the right knee was marked. The patient was brought to the operating room and placed supine on the operating table. Induction of anesthesia was undertaken. 2 g IV Ancef and 1 g tranexamic acid was administered within 1 hr of incision preoperatively. Proper time-out was performed identifying proper patient, site, procedure. The operative extremity was prepped and draped in the appropriate sterile fashion using ChloraPrep after the patient was positioned supine with all bony prominences well padded. A longitudinal, anterior, midline skin incision was made starting approximately 3cm proximal to the superior pole of the patella and advanced distal to the tibial tubercle. A median parapatellar arthrotomy was created. A medial subperiosteal sleeve was created with knife, wright elevator and curved osteotome. The retropatellar fatpad was resected and the synovium in the suprapatellar pouch excised to visualize the anterior femoral cortex. Femoral preparation was performed via an intramedullary guide. Step drill allowed access into the femoral canal. The distal cutting guide was placed with 5? of valgus and 11 mm cut on the distal femur due to a 5-7 degree flexion contracture. Femur was sized using a posterior referencing guide in 3? of external rotation. This found have a best fit with the sizing noted above. The 4 in 1 cutting block was then placed, and the distal femur shaped accordingly. The box cut was then created and the trial implant inserted to confirm appropriate fit. We turned our attention to the proximal tibia. Extramedullary guide was utilized for cutting with the goal of being 90 degree cut from the mechanical axis of the tibia in the varus/valgus plane utilizing tibial crest as the primary alignment. Initially a 2 mm resection was performed from the medial tibial plateau. Ultimately, balancing was achieved in both flexion and extension in both varus and valgus. The knee was able to achieve full extension as well comfortably. The patella was initially measured and found have a thickness of 26 mm. It was resected back to approximately 16 mm. It was sized to be a best fit with as noted above. This was drilled, trial placed. All trials were placed and found to have an excellent stability and balance. At this stage, trial implants were removed, the knee was thoroughly irrigated with normal saline, and the cement was mixed. After irrigation, the knee was thoroughly dried, and cement placed, with the real tibial and femoral implants placed along with the patella. Trial poly spacer was placed and confirmed to have excellent range of motion and full extension, and the real poly spacer opened and inserted. All extra cement was removed, and a 3 min Betadine soak performed. Finally, a final irrigation round with normal saline was performed. Closure performed with 0 Vicryl and #0 Stratafix for the quad tendon/retinaculum. 2-0 Vicryl for the subcutaneous and 4-0 Stratafix for subcuticular closure. Dressings were applied and the patient was awoken from anesthesia after the tourniquet deflated and transferred the PACU in stable condition. A skilled document control assistant was critical for this case to aid in patient positioning, tissue retraction, bone exposure, limb manipulation/positioning, patient safety, and closure. PLAN: 1. Weight bear as tolerated operative extremity. 2. 23 hr perioperative antibiotics. 3. Ice. 4. PT/OT consults for ambulation assistance/mobility education. 5. Social work consult for discharge planning. 6. DVT prophylaxis with at SCDs, Felipe Hose, and aspirin twice daily.
--- NOTE | 2023-06-06 13:49 | W.PM.H&PU ---
History & Physical Update History & Physical Update H&P Reviewed and patient assessed: No changes noted
--- NOTE | 2023-06-06 14:47 | P.NB_ITS ---
Nerve Block Nerve Block Time Seen by Provider: : Date Seen: 06/06/23 Type of block requested by surgeon for post-operative analgesia: adductor canal Side: right Time out performed: Yes Verification of patient name: Yes Verification of date of : Yes Site marking: site marked Name of person performing procedure: Hi Continuous monitoring Was continuous monitoring of O2 sat, B/P, environmental monitoring specialist, recorded every 15 minutes?: Yes Procedure Checklist: sterile prep, needles and gloves Ultrasound guided. Images saved: Yes Medications given in 5ml increments after negative aspiration: Ropivicaine %: 0.5 mL: 20 Needle gauge: 20 Decadron (mg): 10 Precedex (mcg): 25 Patient tolerated procedure well: Yes Additional comments: Needle noted adjacent to nerve Block Charges Block Charge (with Pro Fee): Femoral Nerve Use of Ultrasound Machine for Block: Yes- US Guidance/pain block
--- NOTE | 2023-06-06 14:47 | P.NB_ITS ---
Nerve Block Nerve Block Time Seen by Provider: Date Seen: 06/06/23 Type of block requested by surgeon for post-operative analgesia: geniculars Side: right Time out performed: Yes Verification of patient name: Yes Verification of date of : Yes Site marking: site marked Name of person performing procedure: Hi Continuous monitoring Was continuous monitoring of O2 sat, B/P, traffic monitor specialist, recorded every 15 minutes?: Yes Procedure Checklist: sterile prep, needles and gloves Medications given in 5ml increments after negative aspiration: Ropivicaine %: 0.5 mL: 9 Needle gauge: 25 Patient tolerated procedure well: Yes Block Charges Block Charge (with Pro Fee): Genicular Nerve Block Use of Ultrasound Machine for Block: No
--- NOTE | 2023-06-06 14:48 | W.ANESCHARGE ---
Anesthesia Charges Start Date/Time Anesthesia Start Date: 06/06/23 Anesthesia Start Time: 10:38 Stop Date/Time Anesthesia Stop Date: 06/06/23 Anesthesia Stop Time: 12:25 Summary Extremes of Age - Over 70 or under 1: MDA
--- NOTE | 2023-06-06 15:10 | PM.IMCN1 ---
Date of Consult Consult date: 06/06/23 Requesting Physician: Orthopedics Primary Care Provider: Robert Mckeon MD Consult Narrative Reason for consult: Medical management Narrative: John Lopes is a 83 year old male past medical history significant for hypertension, bradycardia, hyperlipidemia, peripheral edema, ischemic cardiomyopathy, CAD, anemia, osteoarthritis is POD#0 status post right total knee arthroplasty with Dr. Warner. Reports feeling fine. Still feels quite foggy following surgery. Mildly lightheaded. Pain is currently well managed. Tolerating sips of water without nausea or vomiting. Nursing staff reporting bradycardia with heart rates low to mid 40s. Blood pressure has been stable. Asymptomatic otherwise. Patient reports taking in his usual carvedilol dose this morning prior to surgery. Estimated total blood loss documented as 50 ml. Updated and reviewed the active medical problems, past medical history, past surgical history, social history, allergies and medications in our electronic EMR. Review of Systems Narrative: REVIEW OF SYSTEMS: Complete review of systems performed and negative unless otherwise stated in HPI or below. PFSH PFSH Medical History Bradycardia ?R00.1 - Bradycardia, unspecified (ICD-10) Osteoarthritis of right knee ?M17.11 - Unilateral primary osteoarthritis, right knee (ICD-10) Post-polypectomy bleeding Surgical History S/P herniorrhaphy ?Z98.890 - Other specified postprocedural states (ICD-10) ?Z87.19 - Personal history of other diseases of the digestive system (ICD-10) H/O heart artery stent (~2013) ?Z95.5 - Presence of coronary angioplasty implant and graft (ICD-10) Status post laparoscopic appendectomy ?Z90.49 - Acquired absence of other specified parts of digestive tract (ICD-10) History of colonoscopy (07/12/19) ?Z98.890 - Other specified postprocedural states (ICD-10) Family History Father Diabetes Uncle Myocardial infarction Other High blood pressure Stroke Social History Narrative: 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 He is ([place]) with 2 children. He is not sexually active. He walks 4-5 days per week and goes to the gym for exercise 3 days per week when it is open. Recently close during the COVID-19 pandemic. The used to spend much of the winter in [place] but plan to stop doing this. HABITS: No tobacco or recreational drug use. Alcohol use is about 7 drinks per week. This is stable. Smoking Status: Former smoker What tobacco products do you use: cigarettes Smoking quit date/years: >15 years ago Do you use any of these nicotine containing products: None Second hand tobacco smoke exposure: No Little interest or pleasure in doing things: not at all Feeling down, depressed, or hopeless: not at all Meds Home Medications and Allergies Home Medications Medication Instructions Recorded Confirmed Type cholecalciferol (vitamin D3) 25 25 mcg PO DAILY 03/11/22 06/06/23 History mcg (1,000 unit) capsule spironolactone 25 mg tablet 25 mg PO QDAY 11/22/22 06/06/23 History carvedilol 3.125 mg tablet 9.375 mg PO BID 06/06/23 06/06/23 History Allergies Allergy/AdvReac Type Severity Reaction Status Date / Time No Known Allergies Allergy Verified 06/06/23 09:57 Exam Narrative: Exam Narrative: PHYSICAL EXAM General: Sitting up in bed, very pleasant, conversant, NAD HEENT: Normocephalic, atraumatic, sclera white, EOMI, oral mucosa moist Cardiovascular: Bradycardic Pulmonary: CTA bilaterally without rhonchi, rales, expiratory wheezes. No dyspnea Abdominal: Soft, nondistended, NTTP Neurological: Alert, answering questions appropriately, cranial nerves intact, no focal findings Extremities: No gross joint deformity or swelling. Postoperative dressing in place, dry. Neurovascularly intact Skin: Warm, dry. Const: Vital Signs, click to edit/add: Vital Signs - 24 hr 06/06/23 09:49 06/06/23 10:15 06/06/23 10:20 Temperature 99.2 F Pulse Rate 50 L 53 L 47 L Respiratory Rate 16 16 16 Blood Pressure 168/83 H 155/79 H 120/61 Pulse Oximetry 96 97 96 Oxygen Delivery Me thod Room Air Nasal Cannula Nasal Cannula Oxygen Flow Rate 3 3 06/06/23 10:25 06/06/23 10:30 06/06/23 12:20 Temperature 97.0 F L Pulse Rate 43 L 43 L 55 L Respiratory Rate 14 14 12 Blood Pressure 118/63 112/61 95/51 L Pulse Oximetry 95 97 93 Oxygen Delivery Me thod Nasal Cannula Nasal Cannula Room Air Oxygen Flow Rate 3 3 06/06/23 12:25 06/06/23 12:30 06/06/23 12:35 Temperature Pulse Rate 53 L 48 L 48 L Respiratory Rate 14 14 16 Blood Pressure 83/54 L 104/59 L 109/56 L Pulse Oximetry 95 94 95 Oxygen Delivery Me thod Oxygen Flow Rate 06/06/23 12:40 06/06/23 12:46 06/06/23 12:55 Temperature 97.0 F L Pulse Rate 45 L 48 L 45 L Respiratory Rate 12 12 Blood Pressure 113/67 113/65 Pulse Oximetry 93 97 94 Oxygen Delivery Me thod Oxygen Flow Rate 06/06/23 12:57 06/06/23 12:57 06/06/23 13:00 Temperature 96.5 F L Pulse Rate 46 L Respiratory Rate 16 Blood Pressure 120/82 Pulse Oximetry 93 Oxygen Delivery Me thod Room Air Room Air Oxygen Flow Rate 06/06/23 13:00 06/06/23 13:02 06/06/23 13:15 Temperature Pulse Rate 47 L 47 L 45 L Respiratory Rate Blood Pressure 92/69 Pulse Oximetry 94 96 94 Oxygen Delivery Me thod Oxygen Flow Rate 06/06/23 13:15 06/06/23 13:16 06/06/23 13:17 Temperature Pulse Rate 44 L 43 L Respiratory Rate 16 Blood Pressure 114/68 Pulse Oximetry 94 92 Oxygen Delivery Me thod Room Air Oxygen Flow Rate 06/06/23 13:30 06/06/23 13:30 Temperature Pulse Rate 41 L Respiratory Rate 16 16 Blood Pressure 128/71 Pulse Oximetry 97 Oxygen Delivery Me thod Room Air Oxygen Flow Rate Assessment and Plan Assessment and plan (1) Osteoarthritis of right knee: Problem comment: -POD#0 s/p right TKA. -Perioperative management including pain control, anticoagulation, therapy per Orthopedic Surgery -plans to return home with Status: Chronic (2) Hypertension: Problem comment: -blood pressure stable, hold carvedilol and diuretics Status: Acute (3) Bradycardia: Problem comment: -acute on chronic, postoperatively. Followed by Cardiology at [place]. Holter monitor April 2023 shows variable heart rate 43-86, average 56 bpm. -currently taking carvedilol 9.375mg b.i.d., last dose this morning prior to surgery. -telemetry -hold carvedilol, recommend resuming at 6.25 mg b.i.d. on 06/08, until further follow-up with PCP or Cardiology Status: Acute [facility] Medicine will continue to follow while on telemetry. Home medications have been held. Discussed with patient and resuming carvedilol at a lower dose following discharge.
--- NOTE | 2023-06-06 18:56 | PC.NURSE ---
End of shift... Neuros intact...Pt arrived to floor @ 1300 after RTK. VS on RA, HR went down into the mid 30's... and consistently bradycardic I let DR Lopez know... order for telemetry was put in. Bradycardia with 1st degree AV block. No reports of any pain. Up in the chair.. had about 25% of dinner no nausea/ tolerating PO intake. R knee dressing is CDI with no drainage. He has not voided yet. UP Ax1 w/ walker and gate belt. Cyro cuff to knee. plans to be here in the morning for PT and OT. Will call... Aides are going to assist him to walk in the hallway this evening.
[2023-06-06] MEDS: ASPIRIN 81 MG TABLET EC PO (20:49)
[2023-06-06] MEDS: SENNOSIDES 1 TAB TABLET 2 TAB PO (20:49)
[2023-06-06] MEDS: 0.9 % SODIUM CHLORIDE 500 ML IV (21:09)
[2023-06-07] MEDS: CEFAZOLIN 2 GM in 0.9 % SODIUM CHLORIDE Mini-bag 100 ML IVPB ×2 (00:05→08:30)
[2023-06-07] MEDS: ACETAMINOPHEN 500 MG TABLET 1000 MG PO ×2 (02:10→10:49)
[2023-06-07 03:00] VITALS: BP 178/84; PULSE 63; RESP 18; TEMP 36.3; O2SAT 95
--- NOTE | 2023-06-07 06:06 | PC.NURSE ---
End of shift [id number]: Alert and oriented x 4. Patient denied feeling the urge to void at start of shift, technical report writer assisted patient to the bathroom and had 100cc output. Chemist administered PRN normal saline bolus for oliguria, patient then voided x 2 but less than 100 cc each time. Bladder scan completed, total of 401ml captured. Patient then attempted to use the restroom again, at 0000 patient was able to void large amount of pale yellow urine, no further issues with voiding, patient was able to have large output with each bathroom request the rest of the shift. Appetite fair, patient prefers to drink liquids at this time. Dressing to right knee clean, dry and intact. Pain to right knee <3/10 throughout the night, patient goal is to keep pain at or less than 4. CMS intact to RLE.
[2023-06-07 06:42] LABS: Hematocrit 40.6 % (37.0-53.0); Hemoglobin* 13.4 gm/dL (13.5-17.5); Immature Granulocytes Pct Auto 0.2 %; Lymphocytes Percent Auto 10.9 % (20-44); Mean Corpuscular HGB Conc 33 gm/dL (32-36); Mean Corpuscular Hemoglobin 34 pg (26-34); Mean Corpuscular Volume 103 fL (80-100); Monocytes Percent Auto 3.5 % (0.0-11.0); Neutrophils Percent Auto 85.4 % (42.0-72.0); Platelet Count* 229 K/uL (140-440); RDW Coefficient of Variation % 13.1 % (11.5-15.5); Red Blood Count 3.96 m/uL (4.30-5.90); White Blood Count* 13.54 K/uL (4.50-11.00)
[2023-06-07 06:44] LABS: Slide Review Reflex No
[2023-06-07 06:50] LABS: Sodium* 138 mmol/L (135-149)
[2023-06-07 06:51] LABS: Potassium* 5.3 mmol/L (3.6-5.1)
[2023-06-07 06:53] LABS: Creatinine* 1.2 mg/dL (0.5-1.5); Est. Creatinine Clearance* 47.31; Estimated Glomerular Filt Rate 60 ml/min
[2023-06-07 06:54] LABS: Blood Urea Nitrogen* 30 mg/dL (7-30)
[2023-06-07 07:30] VITALS: PULSE 48
[2023-06-07 08:27] VITALS: BP 174/93; PULSE 71; RESP 16; TEMP 36.7; O2SAT 96
[2023-06-07] MEDS: SENNOSIDES 1 TAB TABLET 2 TAB PO (08:29)
[2023-06-07] MEDS: ASPIRIN 81 MG TABLET EC PO (08:29)
[2023-06-07] MEDS: carvediloL 6.25 MG TABLET PO (08:29)
[2023-06-07] MEDS: OXYCODONE 5 MG TABLET PO (08:42)
--- NOTE | 2023-06-07 08:53 | PM.ORPN ---
Subjective Subjective Date Seen: 06/07/23 Principal diagnosis: Status postop day 1 right total knee arthroplasty Interval history: Patient reports doing well. No acute events over night. Reports poor night of sleep largely due to his bladder. Voiding is going better this morning. Pain managed with scheduled and PRN medications, ice. DVT prophylaxis: 81 mg aspirin by mouth twice daily, bilateral knee high Felipe stockings, SCDs, walking. Denies fevers, chills, aches, N/V, CP, SOB/LIRIANO, or lightheadedness. Ortho Exam Narrative Exam Narrative: -Patient appears comfortable; no apparent acute distress -Alert and oriented times 3 -Operative knee mildly swollen; soft tissues supple; no ecchymosis; no erythematous streaking Warmth appropriate -Surgical dressing clean, dry, intact; no drainage -Bilateral calfs soft; no significant swelling, edema, tenderness, erythema, discoloration, warmth, or palpable cords -2+ DP/PT pulses, intact dermatomes and myotomes distally (5/5 strength) Const Vital Signs, click to edit/add: Vital Signs - 24 hr 06/06/23 09:49 06/06/23 10:15 06/06/23 10:20 Temperature 99.2 F Pulse Rate 50 L 53 L 47 L Pulse Rate [Pulse Oximeter] Respiratory Rate 16 16 16 Blood Pressure 168/83 H 155/79 H 120/61 Blood Pressure [Right Arm] Pulse Oximetry 96 97 96 Oxygen Delivery Method Room Air Nasal Cannula Nasal Cannula Oxygen Flow Rate 3 3 06/06/23 10:25 06/06/23 10:30 06/06/23 12:20 Temperature 97.0 F L Pulse Rate 43 L 43 L 55 L Pulse Rate [Pulse Oximeter] Respiratory Rate 14 14 12 Blood Pressure 118/63 112/61 95/51 L Blood Pressure [Right Arm] Pulse Oximetry 95 97 93 Oxygen Delivery Method Nasal Cannula Nasal Cannula Room Air Oxygen Flow Rate 3 3 06/06/23 12:25 06/06/23 12:30 06/06/23 12:35 Temperature Pulse Rate 53 L 48 L 48 L Pulse Rate [Pulse Oximeter] Respiratory Rate 14 14 16 Blood Pressure 83/54 L 104/59 L 109/56 L Blood Pressure [Right Arm] Pulse Oximetry 95 94 95 Oxygen Delivery Method Oxygen Flow Rate 06/06/23 12:40 06/06/23 12:46 06/06/23 12:55 Temperature 97.0 F L Pulse Rate 45 L 48 L 45 L Pulse Rate [Pulse Oximeter] Respiratory Rate 12 12 Blood Pressure 113/67 113/65 Blood Pressure [Right Arm] Pulse Oximetry 93 97 94 Oxygen Delivery Method Oxygen Flow Rate 06/06/23 12:57 06/06/23 12:57 06/06/23 13:00 Temperature 96.5 F L Pulse Rate 46 L Pulse Rate [Pulse Oximeter] Respiratory Rate 16 Blood Pressure 120/82 Blood Pressure [Right Arm] Pulse Oximetry 93 Oxygen Delivery Method Room Air Room Air Oxygen Flow Rate 06/06/23 13:00 06/06/23 13:02 06/06/23 13:15 Temperature Pulse Rate 47 L 47 L 45 L Pulse Rate [Pulse Oximeter] Respiratory Rate Blood Pressure 92/69 Blood Pressure [Right Arm] Pulse Oximetry 94 96 94 Oxygen Delivery Method Oxygen Flow Rate 06/06/23 13:15 06/06/23 13:15 06/06/23 13:16 Temperature 96.0 F L Pulse Rate 44 L Pulse Rate [Pulse Oximeter] 45 L Respiratory Rate 16 16 Blood Pressure 114/68 Blood Pressure [Right Arm] 114/68 Pulse Oximetry 95 94 Oxygen Delivery Method Room Air Room Air Oxygen Flow Rate 06/06/23 13:17 06/06/23 13:30 06/06/23 13:30 Temperature Pulse Rate 43 L 41 L Pulse Rate [Pulse Oximeter] Respiratory Rate 16 16 Blood Pressure 128/71 Blood Pressure [Right Arm] Pulse Oximetry 92 97 Oxygen Delivery Method Room Air Oxygen Flow Rate 06/06/23 13:30 06/06/23 13:45 06/06/23 14:00 Temperature 96.0 F L 96.0 F L Pulse Rate 41 L Pulse Rate [Pulse Oximeter] 44 L 44 L Respiratory Rate 16 16 Blood Pressure Blood Pressure [Right Arm] 128/71 125/79 Pulse Oximetry 96 95 Oxygen Delivery Method Room Air Room Air Oxygen Flow Rate 06/06/23 14:00 06/06/23 14:30 06/06/23 15:00 Temperature 96.5 F L 96.5 F L 96.2 F L Pulse Rate Pulse Rate [Pulse Oximeter] 38 L 46 L 48 L Respiratory Rate 16 16 16 Blood Pressure Blood Pressure [Right Arm] 139/70 137/70 156/73 H Pulse Oximetry 96 97 98 Oxygen Delivery Method Room Air Room Air Room Air Oxygen Flow Rate 06/06/23 15:30 06/06/23 16:00 06/06/23 17:00 Temperature 96.2 F L 96.2 F L Pulse Rate Pulse Rate [Pulse Oximeter] 42 L 55 L Respiratory Rate 16 16 Blood Pressure Blood Pressure [Right Arm] 144/76 H 184/97 H Pulse Oximetry 95 94 94 Oxygen Delivery Method Room Air Room Air Oxygen Flow Rate 06/06/23 18:00 06/06/23 23:00 06/06/23 23:00 Temperature 96.2 F L 96.8 F L Pulse Rate 54 L Pulse Rate [Pulse Oximeter] 53 L 47 L Respiratory Rate 16 18 Blood Pressure Blood Pressure [Right Arm] 175/82 H 163/79 H Pulse Oximetry 95 97 Oxygen Delivery Method Room Air Room Air Oxygen Flow Rate 06/07/23 03:00 06/07/23 08:27 Temperature 97.4 F L 98.0 F Pulse Rate Pulse Rate [Pulse Oximeter] 63 71 Respiratory Rate 18 16 Blood Pressure Blood Pressure [Right Arm] 178/84 H 174/93 H Pulse Oximetry 95 96 Oxygen Delivery Method Room Air Room Air Oxygen Flow Rate Assessment and Plan Assessment and plan (1) Osteoarthritis of right knee: Problem details: -POD#0 s/p right TKA. -Perioperative management including pain control, anticoagulation, therapy per Orthopedic Surgery -plans to return home with Status: Chronic (2) Hypertension: Problem details: -blood pressure stable, hold carvedilol and diuretics Status: Acute (3) Bradycardia: Problem details: -acute on chronic, postoperatively. Followed by Cardiology at [place]. Holter monitor April 2023 shows variable heart rate 43-86, average 56 bpm. -currently taking carvedilol 9.375mg b.i.d., last dose this morning prior to surgery. -telemetry -hold carvedilol, recommend resuming at 6.25 mg b.i.d. on 06/08, until further follow-up with PCP or Cardiology Status: Acute (4) Status post total knee replacement, right: Problem details: POD 1 right total knee arthroplasty Status: Acute Plan - Complete 23 hour perioperative antibiotics. - PT/OT consult for education and assistance. - Social work consult for discharge planning - home with spouse - Prescribed analgesics as needed - DVT prophylaxis: 81 mg aspirin by mouth twice daily, bilateral knee high Felpie Hose stockings and SCDs - Anticipation is for discharge to home with spouse, 06/07/2023 if the patient remains medically stable, pain is controlled, and they are safe with mobilization. - We discussed descending 2 flights of stairs to get to his den where he can paint. Informed him that this may be a couple weeks until he gains better strength, balance, proprioception. We will see how he does with PT/OT
--- NOTE | 2023-06-07 11:02 | P.DS_ITS ---
DS: Providers Provider Date Seen: 06/07/23 Primary care physician: Robert Mckeon MD Attending Physician on discharge: Bao Warner MD Date of Discharge: 06/07/23 DS: Diagnosis Discharge Diagnosis (1) Bradycardia: Status: Acute Problem details: -acute on chronic, postoperatively. Followed by Cardiology at [facility]. Holter monitor April 2023 shows variable heart rate 43-86, average 56 bpm. -currently taking carvedilol 9.375mg b.i.d., last dose this morning prior to surgery. -telemetry Resume carvedilol at 6.25 mg b.i.d. on 06/08, monitor resting pulse at home and record. Review with primary care results of home monitoring of pulse. Goal would be to have resting pulse between 50 and 70 with history of coronary artery disease and ischemic cardiomyopathy (2) Status post total knee replacement, right: Status: Acute Problem details: POD 1 right total knee arthroplasty (3) Coronary artery disease: Status: Acute Problem details: Currently asymptomatic. Monitor with carvedilol dose change. (4) Ischemic cardiomyopathy: Status: Acute Problem details: Currently asymptomatic. Monitor with carvedilol dose change. (5) Hypertension: Status: Acute Problem details: Resume normal blood pressure medicines except reduce carvedilol dose due to bradycardia DS: Summary Hospital Course Hospital Course: 83-year-old male admitted to the hospital for right total knee arthroplasty. Intraoperatively he had bradycardia with pulses in the 30s. Postoperatively pulses remained mostly in the 40s. He was asymptomatic with this. Blood pressures were normal or high. Carvedilol dose was held the night after surgery. This morning carvedilol was resumed at a lower dose of 6.25 mg twice daily. He is instructed to check his resting pulse every day and record the results. He is to call his primary care provider in about 2 weeks to report the results of his monitoring and decide if adjustments in his carvedilol dose need to be made. Goal would be to have resting pulse is between 50 and 70. Status at Discharge Functional status at discharge: uses cane/walker Overall status at discharge: patient is progressing back to baseline Time Spent with Patient Time attestation: Total time spent providing and/or coordinating discharge services: Time spent: Less than 30 minutes Exam Narrative: Exam Narrative: He is alert in no distress. Breathing is unlabored. Vital signs as noted. No significant edema in his lower extremities. Const: Vital Signs, click to edit/add: Vital Signs - 24 hr 06/06/23 12:20 06/06/23 12:25 06/06/23 12:30 Temperature 97.0 F L Pulse Rate 55 L 53 L 48 L Pulse Rate [Pulse Oximeter] Respiratory Rate 12 14 14 Blood Pressure 95/51 L 83/54 L 104/59 L Blood Pressure [Ri ght Arm] Pulse Oximetry 93 95 94 Oxygen Delivery Me thod Room Air 06/06/23 12:35 06/06/23 12:40 06/06/23 12:46 Temperature 97.0 F L Pulse Rate 48 L 45 L 48 L Pulse Rate [Pulse Oximeter] Respiratory Rate 16 12 12 Blood Pressure 109/56 L 113/67 113/65 Blood Pressure [Ri ght Arm] Pulse Oximetry 95 93 97 Oxygen Delivery Me thod 06/06/23 12:55 06/06/23 12:57 06/06/23 12:57 Temperature 96.5 F L Pulse Rate 45 L 46 L Pulse Rate [Pulse Oximeter] Respiratory Rate 16 Blood Pressure 120/82 Blood Pressure [Ri ght Arm] Pulse Oximetry 94 93 Oxygen Delivery Me thod Room Air 06/06/23 13:00 06/06/23 13:00 06/06/23 13:02 Temperature Pulse Rate 47 L 47 L Pulse Rate [Pulse Oximeter] Respiratory Rate Blood Pressure 92/69 Blood Pressure [Ri ght Arm] Pulse Oximetry 94 96 Oxygen Delivery Me thod Room Air 06/06/23 13:15 06/06/23 13:15 06/06/23 13:15 Temperature 96.0 F L Pulse Rate 45 L Pulse Rate [Pulse Oximeter] 45 L Respiratory Rate 16 Blood Pressure Blood Pressure [Ri ght Arm] 114/68 Pulse Oximetry 94 95 Oxygen Delivery Me thod Room Air Room Air 06/06/23 13:16 06/06/23 13:17 06/06/23 13:30 Temperature Pulse Rate 44 L 43 L Pulse Rate [Pulse Oximeter] Respiratory Rate 16 16 Blood Pressure 114/68 Blood Pressure [Ri ght Arm] Pulse Oximetry 94 92 Oxygen Delivery Me thod Room Air 06/06/23 13:30 06/06/23 13:30 06/06/23 13:45 Temperature 96.0 F L 96.0 F L Pulse Rate 41 L Pulse Rate [Pulse Oximeter] 44 L 44 L Respiratory Rate 16 16 16 Blood Pressure 128/71 Blood Pressure [Ri ght Arm] 128/71 125/79 Pulse Oximetry 97 96 95 Oxygen Delivery Me thod Room Air Room Air 06/06/23 14:00 06/06/23 14:00 06/06/23 14:30 Temperature 96.5 F L 96.5 F L Pulse Rate 41 L Pulse Rate [Pulse Oximeter] 38 L 46 L Respiratory Rate 16 16 Blood Pressure Blood Pressure [Ri ght Arm] 139/70 137/70 Pulse Oximetry 96 97 Oxygen Delivery Me thod Room Air Room Air 06/06/23 15:00 06/06/23 15:30 06/06/23 16:00 Temperature 96.2 F L 96.2 F L Pulse Rate Pulse Rate [Pulse Oximeter] 48 L 42 L Respiratory Rate 16 16 Blood Pressure Blood Pressure [Ri ght Arm] 156/73 H 144/76 H Pulse Oximetry 98 95 94 Oxygen Delivery Me thod Room Air Room Air 06/06/23 17:00 06/06/23 18:00 06/06/23 23:00 Temperature 96.2 F L 96.2 F L 96.8 F L Pulse Rate Pulse Rate [Pulse Oximeter] 55 L 53 L 47 L Respiratory Rate 16 16 18 Blood Pressure Blood Pressure [Ri ght Arm] 184/97 H 175/82 H 163/79 H Pulse Oximetry 94 95 97 Oxygen Delivery Me thod Room Air Room Air Room Air 06/06/23 23:00 06/07/23 03:00 06/07/23 08:27 Temperature 97.4 F L 98.0 F Pulse Rate 54 L Pulse Rate [Pulse Oximeter] 63 71 Respiratory Rate 18 16 Blood Pressure Blood Pressure [Ri ght Arm] 178/84 H 174/93 H Pulse Oximetry 95 96 Oxygen Delivery Me thod Room Air Room Air Documenting provider has reviewed patient's vital signs: yes DS: Data Data Completed and Pending Labs on day of discharge: Labs from last 24 hours 06/07/23 05:44 WBC 13.54 H RBC 3.96 L Hgb 13.4 L Hct 40.6 MCV 103 H MCH 34 MCHC 33 RDW Coeff of Jami 13.1 Plt Count 229 Neut % (Auto) 85.4 H Lymph % (Auto) 10.9 L [place] % (Auto) 3.5 Eos % (Auto) 0.0 Baso % (Auto) 0.0 Neut # (Auto) 11.60 H Lymph # (Auto) 1.50 [place] # (Auto) 0.50 Eos # (Auto) 0.00 Baso # (Auto) 0.00 Abs Immat Gran (auto) 0.00 Imm/Tot Granulo (auto) 0.2 Sodium 138 Potassium 5.3 H BUN 30 Creatinine 1.2 Estimated Creat Clear 47.31 Estimated GFR 60 Discharge Plan Discharge Disposition: Home, Self-Care Discharging Surgeon: Bao Warner Follow-Up Appointment: 1 week PO with [facility] Prescriptions: New sennosides-docusate sodium [Senna-S] 8.6-50 mg tablet 1 - 4 tab-cap PO BID PRN (Reason: constipation) Qty: 60 0RF Rx Instructions: Hold medication if experiencing loose stools. aspirin 81 mg tablet,delayed release (DR/EC) 81 mg PO BID Qty: 60 0RF Rx Instructions: Medication to help prevent blood clots postoperatively; take TWICE daily. acetaminophen 500 mg capsule 500 - 1,000 mg PO Q6H MDD 4000mg PRNQty: 100 0RF oxycodone 5 mg tablet 2.5 - 5 mg PO Q4-6H MDD 6 PRN (Reason: pain) Qty: 42 0RF Rx Instructions: Take as needed for postop pain: 2.5mg mild pain, 5mg moderate-severe pain; wean as tolerated. Continued cholecalciferol (vitamin D3) 25 mcg (1,000 unit) capsule 25 mcg PO DAILY atorvastatin 20 mg tablet 20 mg PO .Bedtime Qty: 90 3RF furosemide 20 mg tablet 20 mg PO QDAY PRN (Reason: edema) Qty: 90 3RF losartan 100 mg tablet 100 mg PO .Bedtime Qty: 90 3RF nitroglycerin 0.4 mg tablet, sublingual 0.4 mg sublingual ONCE PRN (Reason: chest pain) Qty: 25 0RF Rx Instructions: PRN CHEST PAIN spironolactone 25 mg tablet 25 mg PO QDAY Changed carvedilol 3.125 mg tablet 6.25 mg PO BID Qty: 120 0RF Discontinued aspirin [Adult Low Dose Aspirin] 81 mg tablet,delayed release (DR/EC) 81 mg PO DAILY Activity Level: Activity as Tolerated, Weight Bearing as Tolerated, Use Cane and Use Walker Activity Detail: Wound: ?Do not remove original dressing; we will remove this at first postop visit in 1 week. Only remove dressing if integrity is in question. ?No immersing wound in water; showering okay; light scrub with your hand and body soap, rinse, dab dry ?Sutures are under the skin, will dissolve; allow surgical glue to come off naturally; do not scrub the wound or apply ointments/lotions ?Call our office with any redness that streaks, excessive drainage from the wound, or wound gapping. Ice/Elevate: ?Ice as needed for swelling and discomfort (cryocuff or ice pack); elevate frequently above the heart MILADYS socks: ?Wear for 1 month, remove for 1 hour 3 times per day ?These are frustrating to take on/off, but are important for blood clot prevention for 1 month after surgery Blood Clot Prevention (DVT): ?Medication: 81 mg aspirin by mouth twice daily (1 month) Driving: ?Do not drive while taking narcotic pain medication ?Anticipate 4-6 weeks no driving if operative leg is driving leg Dental: ?No elective dental work for 6 months post-op. If there is an urgent/emergent dental need, contact our office for an antibiotic prescription. Smoking/Alcohol: ?Do not smoke; do no drink alcohol especially when taking postoperative oral narcotic medication Seek Care from you Primary Care Provider if you experience the following issues in the postoperative phase and beyond: ?Bacterial infections such as: pneumonia, bacterial skin infection (cellulitis), UTI, high fever, chills unrelated to the operative body part - call your primary care physician urgently for treatment in hopes to protect your health and the metal implant. Referrals: ?PT, OT per patient preference - evaluate treat total knee arthroplasty protocol (gait training, ROM, ADLs) Follow up: ?Ortho surgeon follow-up in 6 weeks; repeat radiographs three views operative knee ?PA-C visit in 1 week *If there are any acute concerns regarding your surgery, please call our orthopedic clinic ([phone]) Discharge Diet: Regular Patient Instructions: Acetaminophen (By mouth), Aspirin (By mouth), Oxycodone, Rapid Release (By mouth), Senna (By mouth) (Sen, Senna-lax), Surgical Site Inf ections (DC), Knee Replacement (DC) Forms: Work/School Release Follow-up: Robert Mckeon MD [Primary Care Provider] - (follow up by phone in 2 weeks to review heart rate) Lamont Cheng PA-C [Physician Science Faculty Member] - 06/16/23 10:10 am ([facility] for follow-up.) Discharge Orders: Discharge Order (Routine); Ordered 06/07/23 Ordered By: Lamont Cheng Consulting provider completed their portion of the discharge: Yes
--- NOTE | 2023-06-07 12:15 | PC.NURSE ---
Discharge note: Patient discharged home @ 1130 via wheelchair post RTK.. dressing is CDI with no drainage, tolerating food and liquids with no NV or stomach pain. Rates pain at 2/10 upon discharge which is a tolerable pain level for him. Patient has PT scheduled for outpatient follow up as well as follow up with Ortho next week. Cyrocuff sent with patient. No problem voiding... passing gas BS hypoactive. Reviewed all discharge instructions and answered all patient questions.
== END 2023-06-07 11:30 | disposition home or self-care (01) ==
LOC: OR 08:59 → MEDSURG 09:01
PROVIDERS: PCP Family Medicine; Visit Provider Orthopaedic Surgery Sports Medicine
PROC: (CPT 27447; principal; 2023-06-06 10:45)
DX: M17.11 Unilateral primary osteoarthritis, right knee (principal); G89.18 Other acute postprocedural pain; R00.1 Bradycardia, unspecified; I10 Essential (primary) hypertension; Z95.5 Presence of coronary angioplasty implant and graft; I25.10 Atherosclerotic heart disease of native coronary artery without angina pectoris; I25.5 Ischemic cardiomyopathy
CPT/HCPCS: 27447; 01402; 36415; 51798; 64447; 64454; 73560; 76942; 82565; 84132; 84295; 84520; 85025; 97110; 97116; 97161; 97165; 97530; 97535; 99100; A9270; C1776; J0690; J1100; J2250; J2371; J2405; J2704; J2795; J3010; J7120

== ENCOUNTER 2023-06-16 11:46 | Outpatient (CLI) | payer MEDICARE, BC, SELFPAY ==
--- NOTE | 2023-06-16 12:15 | CRLHL7_ITS ---
For Patients: As a result of the Century Cures Act, medical imaging exams and procedure reports are released immediately into your electronic medical record. You may view this report before your referring provider. If you have questions, please contact your health care provider. INDICATION: RT LEG PAIN AND SWELLING COMPARISON: None. TECHNIQUE: A compression venous ultrasound exam was performed of the right lower extremity using proctor-scale imaging, color Doppler and spectral Doppler analysis. FINDINGS: Sonographic imaging of the right lower extremity demonstrates normal compressibility and color Doppler venous blood flow within the common femoral vein, deep femoral vein, and the proximal greater saphenous vein. Within the thigh, the femoral vein is patent and compressible. At a lower level, the popliteal and posterior tibial veins also show normal compressibility and color Doppler venous blood flow. Limited imaging of the contralateral groin demonstrates a normal spectral waveform and color Doppler venous blood flow within the left common femoral vein. IMPRESSION: Normal venous ultrasound exam. No evidence of deep vein thrombosis within the right lower extremity. Dictated by Tomas Rosario MD @ 06/16/2023 1:43:13 PM (Electronically Signed)
== END 2023-06-16 11:47 | disposition home or self-care (01) ==
LOC: US 11:47
PROVIDERS: PCP Family Medicine; Visit Provider Physician Assistant Surgical
DX: M79.661 Pain in right lower leg (principal); R22.41 Localized swelling, mass and lump, right lower limb
CPT/HCPCS: 93971

== ENCOUNTER 2023-08-23 10:45 | Outpatient (RCR) | payer MEDICARE, BC, SELFPAY ==
--- NOTE | 2023-05-25 11:53 | PT.OPEX ---
PT [place] Outpatient Eval initial eval requires signature PT [facility] Outpatient Eval Start: 05/25/23 07:29 Freq: Status: Active Protocol: Document 05/25/23 07:30 RAUL (Rec: 05/25/23 11:52 RAUL [id number]) E-signed By Keegan Dobson DPT Physical Therapy Outpatient Evaluation Insurance Information Recert Due Date 08/18/23 Insurance Name Medicare B,Blue Cross/Blue Shield Medical Diagnosis R tka Treating Diagnosis Rt knee pain muscle weakness Referring MD Lal Subjective Subjective Thai, comes into clinic for his preop visit prior to his RTKA on 06/06/23. States his biggest issue has been climbing stairs, walking can be irritating with a dull ache . Has been putting the surgery off for how long as he can until his knee arthritis has gotten to severe levels. Is very active as he goes to the gym 3 times a week and several walks. Date of Surgery (If applicable) 06/06/23 Current Work Status Retired Precautions Treatment Precautions/Contraindications heart condition- heart attack 11-12 years ago Objective Other/Pertinent Objective GAIT/FUNCTIONAL MOBILITY ambulates with flexed knee positioning, decreased pace KNEE ROM R 5-117 LLE MMT: Hip flexion: 4+/5 B Hip abduction: 4/5 B Knee flexion: 4+/5 B Knee extension: 4/5 b SLR flexion x 10 with <5 extensor lag noticeable pitting edema bilaterally Assessment Assessment/Impression Pt is a 83 yr old male who presents with concerns of Rt knee pain . Signs and symptoms likely indicating / consistent with Rt knee OA. Patient also has notable objective findings including limited ROM, impaired balance, decreased strength also likely contributing to the problem. Patient is a good candidate for skilled therapy to target deficits described above. Skilled PT intervention is necessary for use of therapeutic exercise manual therapy, neuromuscular re- education, gait training, and therapeutic activity. Functional impairments include difficulty with: walking stairs standin . See appropriate sections of PT eval for complete list of goals and POC. D/C plan and criteria is for pt to achieve the goals as listed below or until max rehab potential is met. Pt was agreeable with plan of care and goals established Plan of Care Rehabilitation Potential Good Physical Therapy Goals TKA GOALS STG (within 5 weeks ) 1) Pt will improve knee AROM at least 0 to 90-100 for improved sit to stand transfers 2) Pt will demonstrate negative extensor lag during straight leg raise exercise with ability to complete at least 15 reps with 5 sec hold to improve strength for ambulation 3) Patient will demonstrate/ report ability to walk for 15- 20 minutes w/SPC with pain level <1/10, to allow for community and household ambulation. LTG: (within 10 weeks) 1) Pt will be indep with HEP for care home management of pain/symptoms 2) Pt will improve knee AROM at least 0 to 115-120 for improved sit to stand transfers 3) Patient will ascend/descend at least 12 steps using single rail and reciprocal pattern to improve ease of mobility at home/community 4) Patient will demonstrate/ report ability to walk for 30 minutes w/o AD with pain level <1/10, to allow for community and household ambulation. Coordination/Communication With Referral Source Treatment Plan/Direct Interventions Gait Training,Joint Mobilization,Manual Therapy, Neuromuscular Re-ed,Orthotics/ Braces,Self-Care/Home Management,Therapeutic Activities,Therapeutic Exercises Frequency/Duration 1-2 visits a week for 6-12 weeks Patient Will Be Discharged From Therapy Completion of LTG(s), Independent w/HEP Evaluation Billing Untimed Code Treatment Minutes 25 Complexity Low Certification Information Physician Comment/Change : Physician NPI Number #
== END 2023-10-04 14:40 | disposition home or self-care (01) ==
PROVIDERS: PCP Family Medicine; Visit Provider Orthopaedic Surgery Sports Medicine
DX: M17.11 Unilateral primary osteoarthritis, right knee (principal); Z96.651 Presence of right artificial knee joint; M25.561 Pain in right knee; M62.81 Muscle weakness (generalized); Z51.89 Encounter for other specified aftercare
CPT/HCPCS: 97110; 97112; 97116; 97140; 97161; 97164; 97530

== ENCOUNTER 2023-11-17 07:35 | Outpatient (CLI) | payer MEDICARE, BC, SELFPAY | END 2023-11-17 07:36 | disposition home or self-care (01) | LOC: NFLDREF 11-18 07:45 | PROVIDERS: PCP Family Medicine; Referring Provider Family Medicine; Visit Provider Family Medicine | DX: E78.5 Hyperlipidemia, unspecified (principal) | CPT/HCPCS: 80053; 80061 ==

== ENCOUNTER 2024-12-07 09:05 | Outpatient (CLI) | payer MEDICARE, BC, SELFPAY | END 2024-12-07 09:06 | disposition home or self-care (01) | LOC: NFLDREF 12-12 20:41 | PROVIDERS: PCP Family Medicine; Referring Provider Family Medicine; Visit Provider Family Medicine | DX: E78.5 Hyperlipidemia, unspecified (principal); I10 Essential (primary) hypertension | CPT/HCPCS: 80053; 80061 ==